=== PATIENT | female | born 1930 | race African-American/Black ===

== ENCOUNTER 2016-12-04 17:00 | Inpatient (IN) | payer OTHER ==
[~2016-12-04] VITALS: Ht 165.1 cm; Wt 86.2 kg
[2016-12-04 17:06] VITALS: BP 138/51
--- NOTE | 2016-12-04 17:16 | Emergency Room Report ---
History of Present Illness General Chief Complaint: General Complaint Source: Patient, EMS Present Illness HPI Patient presents with possible syncopal episode Patient was reported to be at the restroom when she had a lapse of consciousness However the patient reports that she did not use the restroom today There was no reports of vomiting or diarrhea The daughter apparently called the paramedics Patient right now denies any chest pain or short of breath Patient has some mild epigastric discomfort Allergies: Coded Allergies: No Known Allergies (Unverified , 12/04/16) Patient History Limited by: medical condition Past Medical History: see triage record Pertinent Family History: none Now: No Reviewed Nursing Documentation: PMH: Agreed, PSxH: Agreed Nursing Documentation-PMH Past Medical History: No History, Except For Review of Systems All Other Systems: limited - Other than the ones mentioned in the history of present illness all others are reviewed however they do stay limited due to the patient's mental status Physical Exam Vital Signs Date Time Temp Pulse Resp B/P Pulse Ox O2 Delivery O2 Flow Rate FiO2 12/04/16 16:52 98.1 109 16 107/71 98 Room Air Sp02 EP Interpretation: reviewed, normal General Appearance: no apparent distress Head: normocephalic, atraumatic Eyes: bilateral eye EOMI, bilateral eye PERRL ENT: normal pharynx Neck: supple, thyroid normal Respiratory: lungs clear, normal breath sounds Cardiovascular #1: regular rate, rhythm, no edema Gastrointestinal: non tender, soft, no mass Genitourinary: no CVA tenderness Musculoskeletal: other Neurologic: responsive Skin: no rash, warm/dry Lymphatic: no adenopathy Medical Decision Making Diagnostic Impression: Primary Impression: Renal insufficiency Additional Impression: Syncope ER Course Patient is a fairly complex patient with multiple differential to consideration including but not limited to cardiac cardiopulmonary and vascular emergencies Family has presented and at this time they do confirm Patient having a syncopal episode with loss of consciousness while sitting on the toilet There was no other trauma otherwise patient did not fall to the ground She was found slumped over Patient's blood work reveals kidney disease family does confirm the patient has been told Regarding chronic kidney disease potassium is otherwise appropriate No indication for acute dialysis patient admitted for further inpatient care Labs Test 12/04/16 17:28 12/04/16 17:42 White Blood Count 8.2 K/UL (4.8-10.8) Red Blood Count 4.70 M/UL (4.20-5.40) Hemoglobin 13.5 G/DL (12.0-16.0) Hematocrit 42.1 % (37.0-47.0) Mean Corpuscular Volume 90 FL (80-99) Mean Corpuscular Hemoglobin 28.7 PG (27.0-31.0) Mean Corpuscular Hemoglobin Concent 32.1 G/DL (32.0-36.0) Red Cell Distribution Width 13.5 % (11.6-14.8) Platelet Count 127 K/UL (150-450) Mean Platelet Volume 7.7 FL (6.5-10.1) Neutrophils (%) (Auto) 73.2 % (45.0-75.0) Lymphocytes (%) (Auto) 17.6 % (20.0-45.0) Monocytes (%) (Auto) 8.5 % (1.0-10.0) Eosinophils (%) (Auto) 0.3 % (0.0-3.0) Basophils (%) (Auto) 0.4 % (0.0-2.0) Prothrombin Time 11.1 SEC (9.30-11.50) Prothromb Time International Ratio 1.1 (0.9-1.1) Activated Partial Thromboplast Time 19 SEC (23-33) Sodium Level 144 mEQ/L (135-145) Potassium Level 3.3 mEQ/L (3.4-4.9) Chloride Level 102 mEQ/L (98-107) Carbon Dioxide Level 16 mEQ/L (20-30) Anion Gap 26 (5-15) Blood Urea Nitrogen 91 mg/dL (7-23) Creatinine 3.6 mg/dL (0.5-0.9) Estimat Glomerular Filtration Rate mL/min (>60) Glucose Level 119 mg/dL (74-106) Calcium Level 10.8 mg/dL (8.6-10.2) Total Bilirubin 0.4 mg/dL (0.0-1.2) Aspartate Amino Transf (AST/SGOT) 10 U/L (5-40) Alanine Aminotransferase (ALT/SGPT) 8 U/L (3-33) Alkaline Phosphatase 69 U/L (35-104) Total Creatine Kinase 61 U/L (26-140) Creatine Kinase MB 7.1 ng/mL (< 3.8) Creatine Kinase MB Relative Index 11.6 Troponin I < 0.30 ng/mL (<=0.30) Pro-B-Type Natriuretic Peptide 1329 pg/mL (0-450) Total Protein 7.2 g/dL (6.6-8.7) Albumin 4.2 g/dL (3.5-5.2) Globulin 3.0 g/dL Albumin/Globulin Ratio 1.4 (1.0-2.7) Lipase 1292 U/L (< 60) Urine Color Pale yellow Urine Appearance Slightly cloudy Urine pH 5 (4.5-8.0) Urine Specific Francis 1.015 (1.005-1.035) Urine Protein 1+ (NEGATIVE) Urine Glucose (UA) Negative (NEGATIVE) Urine Ketones 1+ (NEGATIVE) Urine Occult Blood Negative (NEGATIVE) Urine Nitrite Negative (NEGATIVE) Urine Bilirubin Negative (NEGATIVE) Urine Urobilinogen Normal MG/DL (0.0-1.0) Urine Leukocyte Esterase 1+ (NEGATIVE) Urine RBC 0 /HPF (0 - 2) Urine WBC 5-10 /HPF (0 - 2) Urine Squamous Epithelial Cells Moderate /LPF (NONE/OCC) Urine Bacteria Few /HPF (NONE) EKG Diagnostic Results Rate: normal Rhythm: NSR ST Segments: other - Nonspecific ST and T-wave changes Rhythm Strip Diag. Results EP Interpretation: yes Rate: 66 Rhythm: NSR, no PVC's, no ectopy Chest X-Ray Diagnostic Results EP Interpretation: Yes Findings: no consolidation, no effusion, no pneumothorax Number of Views: 1 Last Vital Signs Date Time Temp Pulse Resp B/P Pulse Ox O2 Delivery O2 Flow Rate FiO2 12/04/16 17:06 97.0 73 13 138/51 100 Room Air Status: improved Disposition: ADMITTED INPATIENT Condition: Serious VIJAY CONRAD D.O. Dec 04, 2016 17:16
[2016-12-04 17:44] LABS: BASOPHILS % (AUTO) 0.4 % (0.0-2.0); EOSINOPHILS % (AUTO) 0.3 % (0.0-3.0); LYMPHOCYTES % (AUTO) 17.6 % (20.0-45.0); MEAN CORPUSCULAR HEMOGLOBIN 28.7 PG (27.0-31.0); MEAN CORPUSCULAR HGB CONC 32.1 G/DL (32.0-36.0); MEAN CORPUSCULAR VOLUME 90 FL (80-99); MEAN PLATELET VOLUME 7.7 FL (6.5-10.1); MONOCYTES % (AUTO) 8.5 % (1.0-10.0); NEUTROPHILS % (AUTO) 73.2 % (45.0-75.0); PLATELET COUNT 127 K/UL (150-450); RED CELL DISTRIBUTION WIDTH 13.5 % (11.6-14.8); WHITE BLOOD COUNT 8.2 K/UL (4.8-10.8)
[2016-12-04 18:11] LABS: KETONES,URINE 1+ (NEGATIVE); LEUKOCYTE ESTERASE ,URINE 1+ (NEGATIVE); NITRITE,URINE NEGATIVE (NEGATIVE); PH,URINE 5 (4.5-8.0); PROTEIN,URINE 1+ (NEGATIVE); UROBILINOGEN,URINE NORMAL MG/DL (0.0-1.0)
[2016-12-04 18:11] LABS: INR 1.1 (0.9-1.1); PROTHROMBIN TIME 11.1 SEC (9.30-11.50)
[2016-12-04 18:12] LABS: ALANINE AMINOTRANSFERASE 8 U/L (3-33); ALBUMIN/GLOBULIN RATIO 1.4 (1.0-2.7); ANION GAP 26 (5-15); ASPARTATE AMINO TRANSFERASE 10 U/L (5-40); CALCIUM 10.8 mg/dL (8.6-10.2); CARBON DIOXIDE 16 mEQ/L (20-30); CHLORIDE 102 mEQ/L (98-107); CREATININE 3.6 mg/dL (0.5-0.9); HEMOLYSIS 8; POTASSIUM 3.3 mEQ/L (3.4-4.9); SODIUM 144 mEQ/L (135-145); TOTAL PROTEIN 7.2 g/dL (6.6-8.7); TROPONIN I < 0.30 ng/mL (<=0.30)
[2016-12-04 18:13] LABS: APPEARANCE,URINE SLIGHTLY CLOUDY
[2016-12-04 18:23] LABS: CKMB 7.1 ng/mL (< 3.8)
[2016-12-04 18:23] LABS: BACTERIA,URINE FEW /HPF; RBC,URINE 0 /HPF (0 - 2); SQUAMOUS EPITHELIAL CELL,UR MODERATE /LPF (NONE/OCC)
[2016-12-04 18:36] LABS: LIPASE 1292 U/L (< 60)
[2016-12-04] MEDS ORDERED: MECLIZINE HCL25 MG ORAL (19:06)
[2016-12-04] MEDS ORDERED: IBUPROFEN600 MG ORAL (19:06)
[2016-12-04] MEDS ORDERED: VITAMIN D400 INTLU ORAL (19:06)
[2016-12-04] MEDS ORDERED: TRAMADOL HCL50 MG ORAL (19:06)
[2016-12-04] MEDS ORDERED: LASIX40 MG ORAL (19:12)
[2016-12-04] MEDS ORDERED: POTASSIUM CHLO10 ME3 ORAL (19:12)
[2016-12-04] MEDS ORDERED: SIMVASTATIN20 MG ORAL (19:12)
[2016-12-04 19:14] VITALS: BP 142/66
[2016-12-04 22:03] VITALS: BP 140/72
[2016-12-04 23:14] VITALS: BP 131/65
[2016-12-05] VITALS (12 sets, daily range): BP systolic 119–161; BP diastolic 66–99
[2016-12-05 07:41] LABS: BASOPHILS % (AUTO) 0.2 % (0.0-2.0); LYMPHOCYTES % (AUTO) 11.1 % (20.0-45.0); MEAN CORPUSCULAR HEMOGLOBIN 28.9 PG (27.0-31.0); MEAN CORPUSCULAR HGB CONC 32.2 G/DL (32.0-36.0); MEAN CORPUSCULAR VOLUME 90 FL (80-99); MEAN PLATELET VOLUME 8.8 FL (6.5-10.1); MONOCYTES % (AUTO) 5.3 % (1.0-10.0); NEUTROPHILS % (AUTO) 83.3 % (45.0-75.0); PLATELET COUNT 140 K/UL (150-450); RED BLOOD COUNT 4.78 M/UL (4.20-5.40); RED CELL DISTRIBUTION WIDTH 13.6 % (11.6-14.8); WHITE BLOOD COUNT 10.6 K/UL (4.8-10.8)
[2016-12-05 07:51] LABS: ANION GAP 27 (5-15); CALCIUM 10.8 mg/dL (8.6-10.2); CARBON DIOXIDE 16 mEQ/L (20-30); CHLORIDE 104 mEQ/L (98-107); CREATININE 3.2 mg/dL (0.5-0.9); HEMOLYSIS 5; POTASSIUM 3.7 mEQ/L (3.4-4.9); SODIUM 147 mEQ/L (135-145); TROPONIN I < 0.30 ng/mL (<=0.30)
[2016-12-05 08:07] LABS: AMYLASE 2216 U/L (10-110)
[2016-12-05 08:38] LABS: LIPASE > 3000 U/L (< 60)
[2016-12-05] MEDS: Heparin 5000 units/ml inj SUBQ SCH ×2 (12:56→21:00)
--- NOTE | 2016-12-05 13:56 | Diagnostic Imaging Report ---
Indication: SOB Technique: One view of the chest Comparison: none Findings: Lungs and pleural spaces are clear. Heart size is normal. Aorta is tortuous Impression: No acute process This agrees with the preliminary interpretation provided by the emergency room physician
--- NOTE | 2016-12-05 17:16 | General Progress Note ---
Assessment/Plan Problem List: (1) Pancreatitis ICD Codes: K85.90 - Acute pancreatitis without necrosis or infection, unspecified SNOMED: 15639225 (2) Renal insufficiency ICD Codes: N28.9 - Disorder of kidney and ureter, unspecified SNOMED: 981741343 Assessment/Plan fu abd CT fu us repeat labs tumor makers Subjective ROS Limited/Unobtainable: Yes Allergies: Coded Allergies: No Known Allergies (Unverified , 12/04/16) Subjective abd pain Objective Last 24 Hour Vital Signs Date Time Temp Pulse Resp B/P Pulse Ox O2 Delivery O2 Flow Rate FiO2 12/05/16 16:13 110 16 154/96 100 Room Air 12/05/16 14:21 108 16 144/99 100 Room Air 12/05/16 12:37 97 16 161/82 100 Room Air 12/05/16 10:25 103 16 139/87 100 Room Air 12/05/16 07:45 104 17 139/82 100 Room Air 12/05/16 05:58 100 18 151/82 100 Room Air 12/05/16 03:53 97.6 99 18 133/97 100 Room Air 12/05/16 02:55 97.9 97 18 138/82 100 Room Air 12/05/16 01:29 97.0 101 18 138/75 100 Room Air 12/05/16 00:59 97.0 99 18 138/66 100 Room Air 12/04/16 23:14 97.0 98 18 131/65 100 Room Air 12/04/16 22:03 97.0 83 16 140/72 98 Room Air 12/04/16 19:14 97.0 93 16 142/66 98 Room Air Intake and Output 12/04/16 12/05/16 19:00 07:00 Output Total 200 ml 100 ml Balance -200 ml -100 ml Output Urine Total 200 ml 100 ml # Voids 1 1 Laboratory Tests 12/04/16 17:28: White Blood Count 8.2, Red Blood Count 4.70, Hemoglobin 13.5, Hematocrit 42.1, Mean Corpuscular Volume 90, Mean Corpuscular Hemoglobin 28.7, Mean Corpuscular Hemoglobin Concent 32.1, Red Cell Distribution Width 13.5, Platelet Count 127L, Mean Platelet Volume 7.7, Neutrophils (%) (Auto) 73.2, Lymphocytes (%) (Auto) 17.6L, Monocytes (%) (Auto) 8.5, Eosinophils (%) (Auto) 0.3, Basophils (%) (Auto ) 0.4, Prothrombin Time 11.1, Prothromb Time International Ratio 1.1, Activated Partial Thromboplast Time 19L, Sodium Level 144, Potassium Level 3.3L, Chloride Level 102, Carbon Dioxide Level 16L, Anion Gap 26H, Blood Urea Nitrogen 91H, Creatinine 3.6H, Estimat Glomerular Filtration Rate , Glucose Level 119H, Calcium Level 10.8H, Total Bilirubin 0.4, Aspartate Amino Transf (AST/SGOT) 10, Alanine Aminotransferase (ALT/SGPT) 8, Alkaline Phosphatase 69, Total Creatine Kinase 61, Creatine Kinase MB 7.1H, Creatine Kinase MB Relative Index 11.6, Troponin I < 0.30, Pro-B-Type Natriuretic Peptide 1329H, Total Protein 7.2, Albumin 4.2, Globulin 3.0, Albumin/Globulin Ratio 1.4, Lipase 1292H 12/04/16 17:42: Urine Color Pale yellow, Urine Appearance Slightly cloudy, Urine pH 5, Urine Specific [place] 1.015, Urine Protein 1+H, Urine Glucose (UA) Negative, Urine Ketones 1+H, Urine Occult Blood Negative, Urine Nitrite Negative, Urine Bilirubin Negative, Urine Urobilinogen Normal, Urine Leukocyte Esterase 1+H, Urine RBC 0, Urine WBC 5-10H, Urine Squamous Epithelial Cells ModerateH, Urine Bacteria Few 12/05/16 06:55: White Blood Count 10.6, Red Blood Count 4.78, Hemoglobin 13.8, Hematocrit 42.8, Mean Corpuscular Volume 90, Mean Corpuscular Hemoglobin 28.9, Mean Corpuscular Hemoglobin Concent 32.2, Red Cell Distribution Width 13.6, Platelet Count 140L, Mean Platelet Volume 8.8, Neutrophils (%) (Auto) 83.3H, Lymphocytes (%) (Auto) 11.1L, Monocytes (%) (Auto) 5.3, Eosinophils (%) (Auto) 0.0, Basophils (%) (Auto ) 0.2, Sodium Level 147H, Potassium Level 3.7, Chloride Level 104, Carbon Dioxide Level 16L, Anion Gap 27H, Blood Urea Nitrogen 87H, Creatinine 3.2H, Estimat Glomerular Filtration Rate , Glucose Level 96, Calcium Level 10.8H, Troponin I < 0.30, Lipase > 3000H, Amylase Level 2216*H Height (Feet): 5 Height (Inches): 5.00 Weight (Pounds): 190 General Appearance: alert EENT: normal ENT inspection Neck: supple Cardiovascular: normal rate Respiratory/Chest: lungs clear Abdomen: soft, decreased bowel sounds, tender Extremities: non-tender ALESSIA FERGUSON Dec 05, 2016 17:16
[2016-12-06 04:01] VITALS: BP 128/81
[2016-12-06 08:00] VITALS: BP 138/91
[2016-12-06 08:05] LABS: MEAN CORPUSCULAR HEMOGLOBIN 29.1 PG (27.0-31.0); MEAN CORPUSCULAR HGB CONC 32.4 G/DL (32.0-36.0); MEAN CORPUSCULAR VOLUME 90 FL (80-99); MEAN PLATELET VOLUME 8.4 FL (6.5-10.1); PLATELET COUNT 124 K/UL (150-450); RED BLOOD COUNT 4.91 M/UL (4.20-5.40); RED CELL DISTRIBUTION WIDTH 13.8 % (11.6-14.8); WHITE BLOOD COUNT 17.1 K/UL (4.8-10.8)
[2016-12-06 08:35] LABS: ALANINE AMINOTRANSFERASE 9 U/L (3-33); ALBUMIN/GLOBULIN RATIO 1.2 (1.0-2.7); ANION GAP 25 (5-15); ASPARTATE AMINO TRANSFERASE 15 U/L (5-40); CALCIUM 10.8 mg/dL (8.6-10.2); CARBON DIOXIDE 17 mEQ/L (20-30); CHLORIDE 109 mEQ/L (98-107); CHOLESTEROL 196 mg/dL (< 200); CHOLESTEROL/HDL RATIO 2.6 (3.3-4.4); CREATININE 3.3 mg/dL (0.5-0.9); HEMOLYSIS 4; LDL CHOLESTEROL (CALC.) 100 mg/dL (60-99); POTASSIUM 3.4 mEQ/L (3.4-4.9); SODIUM 151 mEQ/L (135-145); TOTAL PROTEIN 7.7 g/dL (6.6-8.7)
--- NOTE | 2016-12-06 08:52 | Diagnostic Imaging Report ---
Indication: Abdominal pain Technique: Spiral acquisitions obtained through the abdomen and pelvis. Patient given oral contrast. No IV contrast utilized, per referring physician request.. Multiplanar reconstructions were generated. Total dose length product 914 mGycm. CTDIvol(s) mGy Comparison: None Findings: There is slight prominence of the pancreatic uncinate osseous and body and slight peripancreatic inflammatory change among with some inflammation tracking along posterior Gerota's fascia. No associated peripancreatic fluid collection. No evidence of gallstones or biliary ductal dilatation. Lack of IV contrast limits assessment of the solid organs. The liver, spleen, adrenals, left kidney are grossly unremarkable. Right kidney demonstrates a 1.5 cm cyst No mesenteric or retroperitoneal mass or adenopathy. No pelvic mass or adenopathy. There is a Lei catheter within the bladder. The bladder is nondistended. There is a small right groin inguinal hernia which contains only fat. There is a small umbilical hernia which contains only fat. There is colonic diverticulosis. No evidence of diverticulitis. Normal appendix. No small bowel distention. No free or loculated intraperitoneal air or fluid is evident. There is a small sliding-type hiatal hernia. There is suggestion of mild wall thickening of the distal esophagus. There is also diverticulosis. No evidence of diverticulitis likely that wall thickening of the duodenum. The included lung bases are clear. The bones demonstrate degenerative spondylosis changes. Impression: Slight swelling of the pancreas and peripancreatic stranding. Findings are consistent with acute pancreatitis. No associated fluid collection demonstrated. Thickening of the duodenal wall. Suspect reactive secondary to the above, but duodenitis is a possibility. Small sliding-type hiatal hernia. Distal esophageal wall thickening may indicate esophagitis Incidental findings as noted, including small fat-containing right inguinal hernia, small fat-containing umbilical hernia, right renal cyst, degenerative spondylosis, Lei catheter This agrees with the preliminary interpretation provided overnight by Dr. Loredo The CT scanner at [facility] is accredited by the [employer] and the scans are performed using protocols designed to limit radiation exposure to as low as reasonably achievable to attain images of sufficient resolution adequate for diagnostic evaluation.
[2016-12-06 08:59] LABS: AMYLASE 1358 U/L (10-110)
[2016-12-06] MEDS: Heparin 5000 units/ml inj SUBQ SCH ×2 (09:00→21:00)
[2016-12-06 09:27] LABS: LIPASE 1168 U/L (< 60)
[2016-12-06 10:59] LABS: BAND NEUTROPHILS % (MANUAL) 1 % (0-8); BASOPHILS % (MANUAL) 0 % (0-2); EOSINOPHILS % (MANUAL) 1 % (0-3); LYMPHOCYTES % (MANUAL) 6 % (20-45); NEUTROPHILS % (MANUAL) 87 % (45-75); PLATELET ESTIMATE DECREASED; PLATELET MORPHOLOGY NORMAL; TOTAL CELLS COUNTED 100
--- NOTE | 2016-12-06 11:06 | General Progress Note ---
Assessment/Plan Problem List: (1) Pancreatitis ICD Codes: K85.90 - Acute pancreatitis without necrosis or infection, unspecified SNOMED: 93883478 (2) Renal insufficiency ICD Codes: N28.9 - Disorder of kidney and ureter, unspecified SNOMED: 295804161 (3) Diverticulosis ICD Codes: K57.90 - Diverticulosis of intestine, part unspecified, without perforation or abscess without bleeding SNOMED: 050839184 (4) Hiatal hernia ICD Codes: K44.9 - Diaphragmatic hernia without obstruction or gangrene SNOMED: 87659848 (5) Esophagitis ICD Codes: K20.9 - Esophagitis, unspecified SNOMED: 14739371 Assessment/Plan ct reviewed labd improving ? cause for pancreatitis MRCP EGD when more stable Subjective ROS Limited/Unobtainable: Yes Allergies: Coded Allergies: No Known Allergies (Unverified , 12/04/16) Subjective abd pain Objective Last 24 Hour Vital Signs Date Time Temp Pulse Resp B/P Pulse Ox O2 Delivery O2 Flow Rate FiO2 12/06/16 08:00 97.9 111 17 138/91 93 Room Air 12/06/16 04:01 98.6 112 19 128/81 97 Room Air 12/06/16 04:00 102 12/05/16 20:07 97.6 108 16 151/92 100 Room Air 12/05/16 20:00 97.5 109 21 119/90 98 Room Air 12/05/16 18:22 114 16 146/96 100 Room Air 12/05/16 16:13 110 16 154/96 100 Room Air 12/05/16 14:21 108 16 144/99 100 Room Air 12/05/16 12:37 97 16 161/82 100 Room Air Intake and Output 12/05/16 12/06/16 19:00 07:00 Output Total 560 ml Balance -560 ml Output Urine Total 560 ml Laboratory Tests 12/06/16 07:09: White Blood Count 17.1#H, Red Blood Count 4.91, Hemoglobin 14.3, Hematocrit 44.0 , Mean Corpuscular Volume 90, Mean Corpuscular Hemoglobin 29.1, Mean Corpuscular Hemoglobin Concent 32.4, Red Cell Distribution Width 13.8, Platelet Count 124L, Mean Platelet Volume 8.4, Neutrophils (%) (Auto) , Lymphocytes (%) ( Auto) , Monocytes (%) (Auto) , Eosinophils (%) (Auto) , Basophils (%) (Auto) , Neutrophils % (Manual) [Pending], Lymphocytes % (Manual) [Pending], Platelet Estimate [Pending], Platelet Morphology [Pending], Sodium Level 151H, Potassium Level 3.4, Chloride Level 109H, Carbon Dioxide Level 17L, Anion Gap 25H, Blood Urea Nitrogen 85H, Creatinine 3.3H, Estimat Glomerular Filtration Rate , Glucose Level 87, Calcium Level 10.8H, Total Bilirubin 0.4, Aspartate Amino Transf (AST/SGOT) 15, Alanine Aminotransferase (ALT/SGPT) 9, Alkaline Phosphatase 72, Total Protein 7.7, Albumin 4.2, Globulin 3.5, Albumin/Globulin Ratio 1.2, Triglycerides Level 98, Cholesterol Level 196, LDL Cholesterol 100H, HDL Cholesterol 76H, Cholesterol/HDL Ratio 2.6L, Amylase Level 1358*H, Lipase 1168H, CA 19-9 Antigen 126.7H Height (Feet): 5 Height (Inches): 5.00 Weight (Pounds): 190 General Appearance: alert EENT: normal ENT inspection Neck: supple Cardiovascular: normal rate Respiratory/Chest: decreased breath sounds Abdomen: normal bowel sounds, soft, tender Extremities: non-tender ALESSIA FERGUSON Dec 06, 2016 11:06
--- NOTE | 2016-12-06 11:09 | Cardiology Report ---
APPROVED REPORT EXAM: Two-dimensional and M-mode echocardiogram with Doppler and color Doppler. INDICATION Congestive Heart Failure M-Mode DIMENSIONS Left Atrium (MM)2.2 (1.6-4.0cm) Aortic Root3.2 (2.0-3.7cm) Aortic Cusp Exc.1.6 (1.5-2.0cm) Technically difficult study due to very poor acoustical windows. M-mode measurements of left ventricle not obtainable due to cardiac position (angle) Normal left ventricular chamber size, grossly normal systolic function and wall motion to extent visualized. Left ventricular ejection fraction estimated to be probably normal Study quality precludes accurate assessment of regional wall motion. Mild left ventricular hypertrophy. Anterior Echo-free space, may be due to pericardial fat or effusion. All other cardiac chamber sizes are within normal limits. Focal aortic valve sclerosis with adequate cusp excursion. Thickened mitral valve leaflets with normal excursion. Mitral annulus and aortic root calcification. Pulmonic valve not well visualized. Normal tricuspid valve structure. No subcostal views obtained due to G-tube location. A color flow and spectral Doppler study was performed and revealed: Trace aortic regurgitation. Trace mitral regurgitation. Mitral diastolic velocities suggest reduced left ventricular relaxation c/w mild LV diastolic dysfunction (Grade I). Trace tricuspid regurgitation. Tricuspid systolic velocities suggests peak right ventricular systolic pressure of 16 mmHg. No pulmonic regurgitation present.
--- NOTE | 2016-12-06 11:27 | Cardiology Report ---
APPROVED REPORT EKG Measurement Heart [id number] IA [id number] Sinus tachycardia with 1st degree AV block with Inferior infarct, age undetermined Cannot rule out Anterior infarct, age undetermined Abnormal ECG
--- NOTE | 2016-12-06 11:27 | Cardiology Report ---
APPROVED REPORT EKG Measurement Heart [id number] RI [id number] Sinus rhythm with marked sinus arrhythmia with premature atrial complexes Low voltage QRS Nonspecific ST and T wave abnormality Abnormal ECG
[2016-12-06 12:08] VITALS: BP 132/86
[2016-12-06] MEDS: Potassium Chloride 30 MEQ in 1/2 NS 1000ml 1,000 ML IV SCH (13:36)
--- NOTE | 2016-12-06 15:51 | Wound Care Consultation ---
Wound Assessment Wound Assessment #1: Wound Number: #1 Wound Present on Admission: Yes New Wound: No Status Change of Wound: No Wound Location Body Site: sacral Wound Type: pressure ulcer Boy Test: Does not Boy Pressure Ulcer Stage: deep tissue injury Wound Thickness: Full Thickness Wound Length: 10.0 Wound Width: 10.0 Wound Depth: UTD Percent of Wound Kosse/Red: 40 Percent of Wound Black/Brown: 20 Percent of Wound Purple/Maroon: 40 Wound Drainage Amount: None Wound Drainage Odor: None/Absent Tissue Surrounding Wound: Intact - ERYTHEMIC Wound General Appearance: Reddened - MAROON, BROWN COLOR. Wound Assessment #2: Wound Number: #2 Wound Present on Admission: Yes New Wound: No Status Change of Wound: No Wound Location Body Site Modif: left, right, lower Wound Location Body Site: leg Wound Type: other - DRY SCALY SKIN. Wound Drainage Amount: None Wound Drainage Odor: None/Absent Tissue Surrounding Wound: Intact - DRY,SCALY Wound General Appearance: Open to air, Clean/Dry Wound Comment #1 Mid sacral deep tissue injury. #2 left and right lower extremity dry,scaly skin. Recommendation. -APPLY LOW AIR LOSS OVERLAY MATTRESS SPR FOR WOUND AND SKIN MANAGEMENT. -Local wound care as ordered. -Turn and reposition. - Keep clean and dry. -Offload affected sacral site , heels and feet. - Avoid sheer and friction. - Assess and notify MD if any change of condition is noted. CHRISTY ALSTON Dec 06, 2016 15:51
[2016-12-06 16:00] VITALS: BP 142/74
--- NOTE | 2016-12-06 16:06 | Diagnostic Imaging Report ---
Indication: 86-year-old female inpatient with abdominal pain, history pancreatitis Technique: Coronal and axial single shot fast spin-echo breath-hold, axial T2 FRFSE, 2-D thick slab MRCP, AXIAL 2-D FIESTA fat saturated, axial 3-D dual echo breath-hold, water weighted axial LAVA FLEX, revealed 3-D MRCP images were obtained of the abdomen. MIP reconstructions were generated of the bile ducts Comparison: CT scan and ultrasound abdomen dated 12/05/2016 Findings: Exam is limited, as there is considerable respiratory motion artifact; patient was unable to hold her breath. The gallbladder is grossly unremarkable, no wall thickening, filling defects, or evidence of pericholecystic edema. The bile ducts are suboptimally visualized due to the motion artifact, but appear to be normal in caliber. No biliary filling defects are demonstrated. The pancreatic duct is not demonstrated. Peripancreatic edema and edema extending into the anterior and posterior leaves of Gerota's fascia on the right are noted. No focal drainable fluid collections are evident. No definite pancreatic mass demonstrated, but due to the motion artifact such cannot be excluded with any confidence. The spleen and adrenals are grossly unremarkable. The right kidney demonstrates a 2 cm cyst in the upper pole. Abnormality of the duodenal wall described on prior CT is difficult to assess on this exam Impression: Limited exam, as described Mild peripancreatic edema and some phlegmon tracking along the anterior and posterior leaves of Gerota's fascia on the right. Findings are compatible with acute pancreatitis, also previously reported. No focal drainable fluid collection demonstrated Negative for gallstones or MRI evidence of acute cholecystitis. Normal caliber bile ducts, no filling defects to suggest choledocholithiasis. Right renal cyst incidentally noted
[2016-12-06 20:00] VITALS: BP 154/85
--- NOTE | 2016-12-06 20:39 | History and Physical Report ---
DATE OF ADMISSION: 12/04/2016 CHIEF COMPLAINT: Abdominal pain. HISTORY OF PRESENT ILLNESS: This is an 86-year-old, female, who presented to this hospital's emergency department with abdominal pain and syncopal episode. PAST MEDICAL HISTORY: 1. Degenerative joint disease. 2. Hypertensive cardiovascular disease. 3. Hiatal hernia. 4. Esophagitis. 5. Diverticulitis. HOME MEDICATIONS: Lasix, ibuprofen, meclizine, potassium chloride, simvastatin, tramadol, and vitamin D. ALLERGIES: No known drug allergies. FAMILY HISTORY: Unremarkable. SOCIAL HISTORY: She lives at home. HABITS: She is nonsmoker and nondrinker. There is no history of illicit drug abuse. REVIEW OF SYSTEMS: HEENT: Hearing and and eyesight are normal. Endocrine: No history of diabetes, thyroid, or adrenal problems. Respiratory: She denies shortness of breath, cough, or hemoptysis. Cardiovascular: She denies chest pain or palpitations. Gastrointestinal: History of hiatal hernia, esophagitis, and diverticulitis. Neurological: No history of stroke, syncope, or Parkinson disease. PHYSICAL EXAMINATION: GENERAL: This is an elderly female, who is in no acute distress. VITAL SIGNS: Blood pressure 138/91; pulse is 110, sinus tachycardia; respirations 20; and temperature 97.9 degrees. HEENT: Head is normocephalic and atraumatic. Pupils are equal, round, and reactive to light and accommodation consensually. NECK: Supple. Trachea midline. There is no lymphadenopathy or thyromegaly. LUNGS: Clear to auscultation and percussion. HEART: Regular rate and rhythm without rubs, murmurs, or gallops. ABDOMEN: Soft. Bowel sounds are active. EXTREMITIES: No clubbing, cyanosis, or edema. NEUROLOGICAL: She is alert and oriented x4. Cranial nerves II through XII are intact. LABORATORY AND ANCILLARY DATA: On admission, white count was 8200, today 17,100. Admission sodium 144, today 151; admission creatinine 3.6, today 3.3; and admission BUN 91, today . Admission amylase 2216, today 1358 and admission lipase 1292, today 1168. CT abdomen and pelvis shows signs of acute pancreatitis. ASSESSMENT: 1. Acute renal failure, most likely secondary to volume depletion. 2. Volume depletion secondary to acute pancreatitis. PLAN: 1. Keep NPO. 2. IV fluid rehydration. 3. GI consult and general surgery consult. Brenna Monge M.D. DR: DIEUDONNE JOB#: [id number] CC:
[2016-12-06] MEDS: Vitamin A&D Oint 2oz Tube TOPIC SCH (21:00)
[2016-12-07 00:04] VITALS: BP 125/82
[2016-12-07 04:03] VITALS: BP 122/81
[2016-12-07] MEDS: Potassium Chloride 30 MEQ in 1/2 NS 1000ml 1,000 ML IV SCH ×2 (04:37→11:30)
[2016-12-07 07:08] LABS: MEAN CORPUSCULAR HEMOGLOBIN 29.4 PG (27.0-31.0); MEAN CORPUSCULAR HGB CONC 32.7 G/DL (32.0-36.0); MEAN CORPUSCULAR VOLUME 90 FL (80-99); MEAN PLATELET VOLUME 8.4 FL (6.5-10.1); PLATELET COUNT 131 K/UL (150-450); RED BLOOD COUNT 4.92 M/UL (4.20-5.40); RED CELL DISTRIBUTION WIDTH 14.1 % (11.6-14.8); WHITE BLOOD COUNT 20.5 K/UL (4.8-10.8)
[2016-12-07 07:51] LABS: ALANINE AMINOTRANSFERASE 8 U/L (3-33); AMYLASE 461 U/L (10-110); ANION GAP 26 (5-15); ASPARTATE AMINO TRANSFERASE 14 U/L (5-40); CALCIUM 10.3 mg/dL (8.6-10.2); CARBON DIOXIDE 16 mEQ/L (20-30); CHLORIDE 110 mEQ/L (98-107); CREATININE 3.1 mg/dL (0.5-0.9); HEMOLYSIS 8; LIPASE 246 U/L (< 60); POTASSIUM 3.5 mEQ/L (3.4-4.9); SODIUM 152 mEQ/L (135-145); TOTAL PROTEIN 7.6 g/dL (6.6-8.7)
[2016-12-07 08:00] VITALS: BP 130/99
[2016-12-07] MEDS: Heparin 5000 units/ml inj SUBQ SCH ×2 (08:52→21:01)
[2016-12-07] MEDS: Vitamin A&D Oint 2oz Tube TOPIC SCH ×2 (08:53→21:00)
--- NOTE | 2016-12-07 09:46 | General Progress Note ---
Assessment/Plan Problem List: (1) Pancreatitis ICD Codes: K85.90 - Acute pancreatitis without necrosis or infection, unspecified SNOMED: 03674974 (2) Renal insufficiency ICD Codes: N28.9 - Disorder of kidney and ureter, unspecified SNOMED: 803214769 (3) Diverticulosis ICD Codes: K57.90 - Diverticulosis of intestine, part unspecified, without perforation or abscess without bleeding SNOMED: 981071231 (4) Hiatal hernia ICD Codes: K44.9 - Diaphragmatic hernia without obstruction or gangrene SNOMED: 02666902 (5) Esophagitis ICD Codes: K20.9 - Esophagitis, unspecified SNOMED: 08579664 Assessment/Plan ct reviewed MRCP reviewed labd improving ? cause for pancreatitis EGD when more stable dc protonix increase IVF Subjective ROS Limited/Unobtainable: Yes Allergies: Coded Allergies: No Known Allergies (Unverified , 12/04/16) Subjective abd pain Objective Last 24 Hour Vital Signs Date Time Temp Pulse Resp B/P Pulse Ox O2 Delivery O2 Flow Rate FiO2 12/07/16 08:00 112 12/07/16 08:00 97.6 118 17 130/99 95 Room Air 124 12/07/16 05:52 116 12/07/16 04:03 98.5 115 19 122/81 95 Room Air 12/07/16 03:05 116 12/07/16 00:04 98.8 113 18 125/82 97 Room Air 12/06/16 20:00 97.2 60 18 154/85 98 Room Air 12/06/16 18:40 111 12/06/16 16:00 96.6 114 20 142/74 98 Room Air 12/06/16 12:08 96.8 113 18 132/86 98 Room Air 103 12/06/16 12:00 108 Intake and Output 12/06/16 12/07/16 19:00 07:00 Intake Total 520 ml Output Total 600 ml Balance -80 ml Intake IV Total 520 ml Output Urine Total 600 ml # Voids 1 Laboratory Tests 12/07/16 06:45: White Blood Count 20.5H, Red Blood Count 4.92, Hemoglobin 14.5, Hematocrit 44.3 , Mean Corpuscular Volume 90, Mean Corpuscular Hemoglobin 29.4, Mean Corpuscular Hemoglobin Concent 32.7, Red Cell Distribution Width 14.1, Platelet Count 131L, Mean Platelet Volume 8.4, Neutrophils (%) (Auto) , Lymphocytes (%) ( Auto) , Monocytes (%) (Auto) , Eosinophils (%) (Auto) , Basophils (%) (Auto) , Neutrophils % (Manual) [Pending], Lymphocytes % (Manual) [Pending], Platelet Estimate [Pending], Platelet Morphology [Pending], Sodium Level 152H, Potassium Level 3.5, Chloride Level 110H, Carbon Dioxide Level 16L, Anion Gap 26H, Blood Urea Nitrogen 85H, Creatinine 3.1H, Estimat Glomerular Filtration Rate , Glucose Level 95, Lactic Acid Level 1.90, Calcium Level 10.3H, Phosphorus Level 3.8, Total Bilirubin 0.4, Aspartate Amino Transf (AST/SGOT) 14, Alanine Aminotransferase (ALT/SGPT) 8, Alkaline Phosphatase 70, Total Protein 7.6, Albumin 3.8, Globulin 3.8, Albumin/Globulin Ratio 1.0, Amylase Level 461H, Lipase 246H Procedure: MRI Abdomen no Contrast Indication: 86-year-old female inpatient with abdominal pain, history pancreatitis Technique: Coronal and axial single shot fast spin-echo breath-hold, axial T2 FRFSE, 2-D thick slab MRCP, AXIAL 2-D FIESTA fat saturated, axial 3-D dual echo breath-hold, water weighted axial LAVA FLEX, revealed 3-D MRCP images were obtained of the abdomen. MIP reconstructions were generated of the bile ducts Comparison: CT scan and ultrasound abdomen dated 12/05/2016 Findings: Exam is limited, as there is considerable respiratory motion artifact; patient was unable to hold her breath. The gallbladder is grossly unremarkable, no wall thickening, filling defects, or evidence of pericholecystic edema. The bile ducts are suboptimally visualized due to the motion artifact, but appear to be normal in caliber. No biliary filling defects are demonstrated. The pancreatic duct is not demonstrated. Peripancreatic edema and edema extending into the anterior and posterior leaves of Gerota's fascia on the right are noted. No focal drainable fluid collections are evident. No definite pancreatic mass demonstrated, but due to the motion artifact such cannot be excluded with any confidence. The spleen and adrenals are grossly unremarkable. The right kidney demonstrates a 2 cm cyst in the upper pole. Abnormality of the duodenal wall described on prior CT is difficult to assess on this exam Impression: Limited exam, as described Mild peripancreatic edema and some phlegmon tracking along the anterior and posterior leaves of Gerota's fascia on the right. Findings are compatible with acute pancreatitis, also previously reported. No focal drainable fluid collection demonstrated Negative for gallstones or MRI evidence of acute cholecystitis. Normal caliber bile ducts, no filling defects to suggest choledocholithiasis. Right renal cyst incidentally noted Dictated By: KRISTINE JACKSON M.D. Electronically Signed By: KRISTINE JACKSON M.D. Signed Date/Time 12/06/16 1606 CC: UNKNOWN; ALESSIA FERGUSON Height (Feet): 5 Height (Inches): 5.00 Weight (Pounds): 190 General Appearance: no apparent distress EENT: normal ENT inspection Neck: supple Cardiovascular: normal rate Respiratory/Chest: decreased breath sounds Abdomen: normal bowel sounds, non tender, soft Extremities: non-tender ALESSIA FERGUSON Dec 07, 2016 09:46
[2016-12-07 10:57] LABS: BAND NEUTROPHILS % (MANUAL) 1 % (0-8); BASOPHILS % (MANUAL) 0 % (0-2); EOSINOPHILS % (MANUAL) 0 % (0-3); LYMPHOCYTES % (MANUAL) 6 % (20-45); NEUTROPHILS % (MANUAL) 90 % (45-75); PLATELET ESTIMATE DECREASED; PLATELET MORPHOLOGY NORMAL; TOTAL CELLS COUNTED 100
[2016-12-07] MEDS ORDERED: Potassium Chloride 30 MEQ in 1/2 NS 1000ml 1,000 ML IV SCH (11:30)
[2016-12-07 12:00] VITALS: BP 139/92
--- NOTE | 2016-12-07 13:12 | Nephrology Progress Note ---
Assessment/Plan Plan Resolving Acute Pancreatitis. Tacycardia m/p 2/2 volume depletion. Renal failure m/p chronic. Check labs tomorrow. Check Renal US results. Subjective Subjective No new c/o Objective Objective Last 24 Hour Vital Signs Date Time Temp Pulse Resp B/P Pulse Ox O2 Delivery O2 Flow Rate FiO2 12/07/16 08:00 112 12/07/16 08:00 97.6 118 17 130/99 95 Room Air 124 12/07/16 05:52 116 12/07/16 04:03 98.5 115 19 122/81 95 Room Air 12/07/16 03:05 116 12/07/16 00:04 98.8 113 18 125/82 97 Room Air 12/06/16 20:00 97.2 60 18 154/85 98 Room Air 12/06/16 18:40 111 12/06/16 16:00 96.6 114 20 142/74 98 Room Air Intake and Output 12/06/16 12/07/16 19:00 07:00 Intake Total 585 ml Output Total 600 ml Balance -15 ml Intake IV Total 585 ml Output Urine Total 600 ml # Voids 1 Laboratory Tests 12/07/16 06:45: White Blood Count 20.5H, Red Blood Count 4.92, Hemoglobin 14.5, Hematocrit 44.3 , Mean Corpuscular Volume 90, Mean Corpuscular Hemoglobin 29.4, Mean Corpuscular Hemoglobin Concent 32.7, Red Cell Distribution Width 14.1, Platelet Count 131L, Mean Platelet Volume 8.4, Neutrophils (%) (Auto) , Lymphocytes (%) ( Auto) , Monocytes (%) (Auto) , Eosinophils (%) (Auto) , Basophils (%) (Auto) , Differential Total Cells Counted 100, Neutrophils % (Manual) 90H, Lymphocytes % (Manual) 6L, Monocytes % (Manual) 3, Eosinophils % (Manual) 0, Basophils % ( Manual) 0, Band Neutrophils 1, Platelet Estimate DecreasedL, Platelet Morphology Normal, Red Blood Cell Morphology Normal, Sodium Level 152H, Potassium Level 3.5, Chloride Level 110H, Carbon Dioxide Level 16L, Anion Gap 26H, Blood Urea Nitrogen 85H, Creatinine 3.1H, Estimat Glomerular Filtration Rate , Glucose Level 95, Lactic Acid Level 1.90, Calcium Level 10.3H, Phosphorus Level 3.8, Total Bilirubin 0.4, Aspartate Amino Transf (AST/SGOT) 14 , Alanine Aminotransferase (ALT/SGPT) 8, Alkaline Phosphatase 70, Total Protein 7.6, Albumin 3.8, Globulin 3.8, Albumin/Globulin Ratio 1.0, Amylase Level 461H, Lipase 246H Height (Feet): 5 Height (Inches): 5.00 Weight (Pounds): 190 Objective Cv Tach Lungs CTA Abd SNT . BS + E No CCE BEATRIZ DANIELS Dec 07, 2016 13:12
[2016-12-07 16:00] VITALS: BP 137/90
[2016-12-07 20:00] VITALS: BP 134/66
[2016-12-08 00:42] VITALS: BP 156/80
[2016-12-08 04:09] VITALS: BP 125/77
[2016-12-08 07:10] LABS: ALANINE AMINOTRANSFERASE 8 U/L (3-33); AMYLASE 229 U/L (10-110); ANION GAP 24 (5-15); ASPARTATE AMINO TRANSFERASE 13 U/L (5-40); CALCIUM 9.5 mg/dL (8.6-10.2); CARBON DIOXIDE 13 mEQ/L (20-30); CHLORIDE 109 mEQ/L (98-107); CREATININE 2.8 mg/dL (0.5-0.9); HEMOLYSIS 6; LIPASE 201 U/L (< 60); POTASSIUM 3.8 mEQ/L (3.4-4.9); SODIUM 146 mEQ/L (135-145); TOTAL PROTEIN 6.8 g/dL (6.6-8.7)
[2016-12-08 07:21] LABS: MEAN CORPUSCULAR HEMOGLOBIN 28.7 PG (27.0-31.0); MEAN CORPUSCULAR HGB CONC 32.5 G/DL (32.0-36.0); MEAN CORPUSCULAR VOLUME 88 FL (80-99); MEAN PLATELET VOLUME 9.4 FL (6.5-10.1); PLATELET COUNT 129 K/UL (150-450); RED BLOOD COUNT 4.64 M/UL (4.20-5.40); WHITE BLOOD COUNT 14.4 K/UL (4.8-10.8)
[2016-12-08 07:22] LABS: THYROID STIMULATING HORMONE 0.875 uIU/mL (0.300-4.500)
--- NOTE | 2016-12-08 07:33 | Nephrology Progress Note ---
Assessment/Plan Plan Resolving Acute Pancreatitis. Imaging studies - no stones. Tacycardia m/p 2/2 volume depletion. Renal failure m/p chronic. Check labs. Check Renal US results.Still pending??? MRI and non contrast CT show normal size kidneys. m/p CKD 4 Subjective Subjective No new c/o. On Clear Liquid Diet but tried only Ice Chips. No vomiting. Objective Objective Last 24 Hour Vital Signs Date Time Temp Pulse Resp B/P Pulse Ox O2 Delivery O2 Flow Rate FiO2 12/08/16 04:09 98.2 105 19 125/77 94 Room Air 12/08/16 04:00 104 12/08/16 00:42 98.7 120 20 156/80 100 Room Air 12/08/16 00:00 115 12/07/16 20:00 118 12/07/16 20:00 97.7 134 20 134/66 93 Room Air 12/07/16 16:00 95.9 121 20 137/90 99 Room Air 12/07/16 16:00 110 12/07/16 12:00 118 12/07/16 12:00 97.8 126 17 139/92 95 Room Air 123 12/07/16 08:00 112 12/07/16 08:00 97.6 118 17 130/99 95 Room Air 124 Intake and Output 12/07/16 12/08/16 19:00 07:00 Intake Total 730 ml 900 ml Output Total 250 ml 800 ml Balance 480 ml 100 ml Intake IV Total 730 ml 900 ml Output Urine Total 250 ml 800 ml # Bowel Movements 1 Laboratory Tests 12/08/16 06:00: White Blood Count 14.4H, Red Blood Count 4.64, Hemoglobin 13.3, Hematocrit 41.0 , Mean Corpuscular Volume 88, Mean Corpuscular Hemoglobin 28.7, Mean Corpuscular Hemoglobin Concent 32.5, Red Cell Distribution Width 14.0, Platelet Count 129L, Mean Platelet Volume 9.4, Neutrophils (%) (Auto) , Lymphocytes (%) ( Auto) , Monocytes (%) (Auto) , Eosinophils (%) (Auto) , Basophils (%) (Auto) , Neutrophils % (Manual) [Pending], Lymphocytes % (Manual) [Pending], Platelet Estimate [Pending], Platelet Morphology [Pending], Sodium Level 146H, Potassium Level 3.8, Chloride Level 109H, Carbon Dioxide Level 13L, Anion Gap 24H, Blood Urea Nitrogen 82H, Creatinine 2.8H, Estimat Glomerular Filtration Rate , Glucose Level 164H, Calcium Level 9.5, Total Bilirubin [Pending], Direct Bilirubin [Pending], Aspartate Amino Transf (AST/SGOT) [Pending], Alanine Aminotransferase (ALT/SGPT) [Pending], Alkaline Phosphatase [Pending], Total Protein [Pending], Albumin [Pending], Globulin 3.4, Albumin/Globulin Ratio 1.0, Amylase Level 229H, Lipase 201H, Thyroid Stimulating Hormone (TSH) 0.875 Height (Feet): 5 Height (Inches): 5.00 Weight (Pounds): 190 Objective Cv Tach Lungs CTA Abd SNT . BS + E No CCE BEATRIZ DANIELS Dec 08, 2016 07:33
[2016-12-08 07:38] LABS: BILIRUBIN,DIRECT 0.1 mg/dL (0.1-0.3); TOTAL PROTEIN 6.3 g/dL (6.6-8.7)
[2016-12-08 07:52] VITALS: BP 124/67
[2016-12-08 08:22] LABS: BAND NEUTROPHILS % (MANUAL) 0 % (0-8); BASOPHILS % (MANUAL) 0 % (0-2); EOSINOPHILS % (MANUAL) 0 % (0-3); LYMPHOCYTES % (MANUAL) 7 % (20-45); NEUTROPHILS % (MANUAL) 88 % (45-75); PLATELET ESTIMATE DECREASED; TOTAL CELLS COUNTED 100
[2016-12-08 08:23] LABS: PLATELET MORPHOLOGY NORMAL
--- NOTE | 2016-12-08 08:28 | Diagnostic Imaging Report ---
Indication: Abdominal pain, abnormal renal function tests Technique: Walton-scale and duplex images of the upper abdomen were obtained Comparison: 05/07/2017 CT Findings: . Gallbladder is unremarkable, without stones, wall thickening, nor pericholecystic fluid. . Common bile duct measures 3 mm in diameter. No intrahepatic biliary ductal dilatation. The left lobe of the liver is poorly visualized. The liver grossly demonstrates normal echogenicity, no definite focal abnormality. Portal vein and hepatic veins are patent.. Pancreas is unremarkable. Spleen is unremarkable. Left kidney measures 8.4 cm in length. Right kidney measures 7.2 cm length. Right kidney demonstrates increased echogenicity. It demonstrates a 14 mm upper pole cyst.. There is no hydronephrosis. Non-aneurysmal abdominal aorta. Impression: Negative for gallstones or dilated ducts Atrophic right kidney with a small cyst. The cyst is described on recent CT scan Note suboptimal visualization of the left hepatic lobe
[2016-12-08] MEDS: Heparin 5000 units/ml inj SUBQ SCH ×2 (09:00→21:03)
[2016-12-08] MEDS: Vitamin A&D Oint 2oz Tube TOPIC SCH ×2 (10:15→21:03)
--- NOTE | 2016-12-08 10:24 | General Progress Note ---
Assessment/Plan Problem List: (1) Pancreatitis ICD Codes: K85.90 - Acute pancreatitis without necrosis or infection, unspecified SNOMED: 02464419 (2) Renal insufficiency ICD Codes: N28.9 - Disorder of kidney and ureter, unspecified SNOMED: 845846074 (3) Diverticulosis ICD Codes: K57.90 - Diverticulosis of intestine, part unspecified, without perforation or abscess without bleeding SNOMED: 648784156 (4) Hiatal hernia ICD Codes: K44.9 - Diaphragmatic hernia without obstruction or gangrene SNOMED: 78139055 (5) Esophagitis ICD Codes: K20.9 - Esophagitis, unspecified SNOMED: 61518804 Assessment/Plan ct reviewed MRCP reviewed labs improving ? cause for pancreatitis EGD when more stable IVF Subjective ROS Limited/Unobtainable: Yes Allergies: Coded Allergies: No Known Allergies (Unverified , 12/04/16) Subjective abd pain Objective Last 24 Hour Vital Signs Date Time Temp Pulse Resp B/P Pulse Ox O2 Delivery O2 Flow Rate FiO2 12/08/16 07:52 96.1 82 18 124/67 99 Room Air 12/08/16 04:09 98.2 105 19 125/77 94 Room Air 12/08/16 04:00 104 12/08/16 00:42 98.7 120 20 156/80 100 Room Air 12/08/16 00:00 115 12/07/16 20:00 118 12/07/16 20:00 97.7 134 20 134/66 93 Room Air 12/07/16 16:00 95.9 121 20 137/90 99 Room Air 12/07/16 16:00 110 12/07/16 12:00 118 12/07/16 12:00 97.8 126 17 139/92 95 Room Air 123 Intake and Output 12/07/16 12/08/16 19:00 07:00 Intake Total 730 ml 900 ml Output Total 250 ml 800 ml Balance 480 ml 100 ml Intake IV Total 730 ml 900 ml Output Urine Total 250 ml 800 ml # Bowel Movements 1 Laboratory Tests 12/08/16 06:00: White Blood Count 14.4H, Red Blood Count 4.64, Hemoglobin 13.3, Hematocrit 41.0 , Mean Corpuscular Volume 88, Mean Corpuscular Hemoglobin 28.7, Mean Corpuscular Hemoglobin Concent 32.5, Red Cell Distribution Width 14.0, Platelet Count 129L, Mean Platelet Volume 9.4, Neutrophils (%) (Auto) , Lymphocytes (%) ( Auto) , Monocytes (%) (Auto) , Eosinophils (%) (Auto) , Basophils (%) (Auto) , Differential Total Cells Counted 100, Neutrophils % (Manual) 88H, Lymphocytes % (Manual) 7L, Monocytes % (Manual) 5, Eosinophils % (Manual) 0, Basophils % ( Manual) 0, Band Neutrophils 0, Platelet Estimate DecreasedL, Platelet Morphology Normal, Red Blood Cell Morphology Normal, Sodium Level 146H, Potassium Level 3.8, Chloride Level 109H, Carbon Dioxide Level 13L, Anion Gap 24H, Blood Urea Nitrogen 82H, Creatinine 2.8H, Estimat Glomerular Filtration Rate , Glucose Level 164H, Calcium Level 9.5, Total Bilirubin 0.4, Direct Bilirubin 0.1, Aspartate Amino Transf (AST/SGOT) 13, Alanine Aminotransferase ( ALT/SGPT) 7, Alkaline Phosphatase 65, Total Protein 6.3L, Albumin 3.5, Globulin 3.4, Albumin/Globulin Ratio 1.0, Amylase Level 229H, Lipase 201H, Thyroid Stimulating Hormone (TSH) 0.875 Height (Feet): 5 Height (Inches): 5.00 Weight (Pounds): 190 General Appearance: alert EENT: normal ENT inspection Neck: supple Cardiovascular: normal rate Respiratory/Chest: decreased breath sounds Abdomen: normal bowel sounds, non tender, soft Extremities: non-tender ALESSIA FERGUSON Dec 08, 2016 10:24
[2016-12-08] MEDS ORDERED: Morphine Sulfate 2mg/ml Inj IVP PRN (10:30)
[2016-12-08 11:15] VITALS: BP 148/72
[2016-12-08 16:00] VITALS: BP 131/64
--- NOTE | 2016-12-08 17:31 | General Progress Note ---
Assessment/Plan Assessment/Plan assuming primary care due to insurance 1. Acute pancreatitis, etiology unclear 2. tachycardia, acidosis 3. Renal failure, hypernatremia 4. Esophagitis. 5. Hypertensive cardiovascular disease. IVF w HCO3 pain mgmt EGD disc w renal, GI, RN labs Subjective Constitutional: Reports: malaise, weakness Gastrointestinal/Abdominal: Reports: nausea Allergies: Coded Allergies: No Known Allergies (Unverified , 12/04/16) Objective Last 24 Hour Vital Signs Date Time Temp Pulse Resp B/P Pulse Ox O2 Delivery O2 Flow Rate FiO2 12/08/16 16:00 96.6 90 18 131/64 99 Room Air 12/08/16 12:00 84 12/08/16 11:15 96.3 89 18 148/72 98 Room Air 12/08/16 08:00 117 12/08/16 07:52 96.1 82 18 124/67 99 Room Air 12/08/16 04:09 98.2 105 19 125/77 94 Room Air 12/08/16 04:00 104 12/08/16 00:42 98.7 120 20 156/80 100 Room Air 12/08/16 00:00 115 12/07/16 20:00 118 12/07/16 20:00 97.7 134 20 134/66 93 Room Air Intake and Output 12/07/16 12/08/16 19:00 07:00 Intake Total 730 ml 900 ml Output Total 250 ml 800 ml Balance 480 ml 100 ml Intake IV Total 730 ml 900 ml Output Urine Total 250 ml 800 ml # Bowel Movements 1 Laboratory Tests 12/08/16 06:00: White Blood Count 14.4H, Red Blood Count 4.64, Hemoglobin 13.3, Hematocrit 41.0 , Mean Corpuscular Volume 88, Mean Corpuscular Hemoglobin 28.7, Mean Corpuscular Hemoglobin Concent 32.5, Red Cell Distribution Width 14.0, Platelet Count 129L, Mean Platelet Volume 9.4, Neutrophils (%) (Auto) , Lymphocytes (%) ( Auto) , Monocytes (%) (Auto) , Eosinophils (%) (Auto) , Basophils (%) (Auto) , Differential Total Cells Counted 100, Neutrophils % (Manual) 88H, Lymphocytes % (Manual) 7L, Monocytes % (Manual) 5, Eosinophils % (Manual) 0, Basophils % ( Manual) 0, Band Neutrophils 0, Platelet Estimate DecreasedL, Platelet Morphology Normal, Red Blood Cell Morphology Normal, Sodium Level 146H, Potassium Level 3.8, Chloride Level 109H, Carbon Dioxide Level 13L, Anion Gap 24H, Blood Urea Nitrogen 82H, Creatinine 2.8H, Estimat Glomerular Filtration Rate , Glucose Level 164H, Calcium Level 9.5, Total Bilirubin 0.4, Direct Bilirubin 0.1, Aspartate Amino Transf (AST/SGOT) 13, Alanine Aminotransferase ( ALT/SGPT) 7, Alkaline Phosphatase 65, Total Protein 6.3L, Albumin 3.5, Globulin 3.4, Albumin/Globulin Ratio 1.0, Amylase Level 229H, Lipase 201H, Thyroid Stimulating Hormone (TSH) 0.875 Height (Feet): 5 Height (Inches): 5.00 Weight (Pounds): 190 Neck: normal alignment Cardiovascular: regular rhythm, tachycardia Respiratory/Chest: lungs clear Edema: no edema noted Generalized SUZANNE MAYER Dec 08, 2016 17:31
[2016-12-08 20:00] VITALS: BP 125/76
[2016-12-08] MEDS: Sodium Bicarbonate 50 ML in D5W 1000ml 1,000 ML IV SCH (20:04)
[2016-12-09 00:22] VITALS: BP 109/71
[2016-12-09] MEDS: Sodium Bicarbonate 50 ML in D5W 1000ml 1,000 ML IV SCH ×3 (03:24→20:37)
[2016-12-09 04:05] VITALS: BP 130/96
[2016-12-09 07:57] LABS: BASOPHILS % (AUTO) 0.1 % (0.0-2.0); LYMPHOCYTES % (AUTO) 10.1 % (20.0-45.0); MEAN CORPUSCULAR HEMOGLOBIN 28.7 PG (27.0-31.0); MEAN CORPUSCULAR HGB CONC 32.3 G/DL (32.0-36.0); MEAN CORPUSCULAR VOLUME 89 FL (80-99); NEUTROPHILS % (AUTO) 83.8 % (45.0-75.0); PLATELET COUNT 134 K/UL (150-450); RED BLOOD COUNT 4.58 M/UL (4.20-5.40); RED CELL DISTRIBUTION WIDTH 14.2 % (11.6-14.8); WHITE BLOOD COUNT 11.4 K/UL (4.8-10.8)
[2016-12-09 08:00] VITALS: BP 125/67
[2016-12-09 08:15] LABS: ALANINE AMINOTRANSFERASE 7 U/L (3-33); AMYLASE 182 U/L (10-110); ANION GAP 19 (5-15); ASPARTATE AMINO TRANSFERASE 11 U/L (5-40); BILIRUBIN,DIRECT 0.1 mg/dL (0.1-0.3); CALCIUM 9.4 mg/dL (8.6-10.2); CARBON DIOXIDE 19 mEQ/L (20-30); CHLORIDE 106 mEQ/L (98-107); CREATININE 2.5 mg/dL (0.5-0.9); HEMOLYSIS 2; LIPASE 176 U/L (< 60); POTASSIUM 4.2 mEQ/L (3.4-4.9); SODIUM 144 mEQ/L (135-145); TOTAL PROTEIN 6.5 g/dL (6.6-8.7)
[2016-12-09] MEDS: Vitamin A&D Oint 2oz Tube TOPIC SCH ×2 (08:33→20:38)
[2016-12-09] MEDS: Heparin 5000 units/ml inj SUBQ SCH ×2 (08:33→20:38)
[2016-12-09] MEDS ORDERED: D5NS 1000ml IV ONE (10:19)
--- NOTE | 2016-12-09 11:07 | Nephrology Progress Note ---
Assessment/Plan Plan Resolving Acute Pancreatitis. Imaging studies - no stones. Tacycardia m/p 2/2 volume depletion. CKD 4. MDRD GFR is 23 ml/min/1.73 m square. Etiology of her CKD unclear. Renal Anatomy is normal. Subjective Subjective No new c/o. Objective Objective Last 24 Hour Vital Signs Date Time Temp Pulse Resp B/P Pulse Ox O2 Delivery O2 Flow Rate FiO2 12/09/16 08:00 96.3 86 18 125/67 100 Room Air 12/09/16 04:05 98.3 98 18 130/96 98 Room Air 12/09/16 04:00 120 12/09/16 00:22 98.1 120 19 109/71 93 Room Air 12/09/16 00:00 82 12/08/16 20:00 87 12/08/16 20:00 95.5 74 18 125/76 95 Room Air 12/08/16 16:00 80 12/08/16 16:00 96.6 90 18 131/64 99 Room Air 12/08/16 12:00 84 12/08/16 11:15 96.3 89 18 148/72 98 Room Air Intake and Output 12/08/16 12/09/16 19:00 07:00 Intake Total 375 ml 1125 ml Output Total 100 ml 500 ml Balance 275 ml 625 ml Intake IV Total 375 ml 1125 ml Output Urine Total 100 ml 500 ml Laboratory Tests 12/09/16 07:20: White Blood Count 11.4H, Red Blood Count 4.58, Hemoglobin 13.2, Hematocrit 40.8 , Mean Corpuscular Volume 89, Mean Corpuscular Hemoglobin 28.7, Mean Corpuscular Hemoglobin Concent 32.3, Red Cell Distribution Width 14.2, Platelet Count 134L, Mean Platelet Volume 9.0, Neutrophils (%) (Auto) 83.8H, Lymphocytes (%) (Auto) 10.1L, Monocytes (%) (Auto) 6.0, Eosinophils (%) (Auto) 0.0, Basophils (%) (Auto) 0.1, Sodium Level 144, Potassium Level 4.2, Chloride Level 106, Carbon Dioxide Level 19L, Anion Gap 19H, Blood Urea Nitrogen 74H, Creatinine 2.5H, Estimat Glomerular Filtration Rate , Glucose Level 159H, Calcium Level 9.4, Total Bilirubin 0.4, Direct Bilirubin 0.1, Aspartate Amino Transf (AST/SGOT) 11, Alanine Aminotransferase (ALT/SGPT) 7, Alkaline Phosphatase 64, Total Protein 6.5L, Albumin 3.3L, Globulin 3.2, Albumin/ Globulin Ratio 1.0, Amylase Level 182H, Lipase 176H Height (Feet): 5 Height (Inches): 5.00 Weight (Pounds): 190 Objective Cv Tach Lungs CTA Abd SNT . BS + E No JOSEFINAE BEATRIZ DANIELS Dec 09, 2016 11:07
[2016-12-09 11:23] VITALS: BP 115/81
--- NOTE | 2016-12-09 12:00 | General Progress Note ---
Assessment/Plan Problem List: (1) Pancreatitis ICD Codes: K85.90 - Acute pancreatitis without necrosis or infection, unspecified SNOMED: 39757142 (2) Renal insufficiency ICD Codes: N28.9 - Disorder of kidney and ureter, unspecified SNOMED: 091564458 (3) Diverticulosis ICD Codes: K57.90 - Diverticulosis of intestine, part unspecified, without perforation or abscess without bleeding SNOMED: 333077736 (4) Hiatal hernia ICD Codes: K44.9 - Diaphragmatic hernia without obstruction or gangrene SNOMED: 24368928 (5) Esophagitis ICD Codes: K20.9 - Esophagitis, unspecified SNOMED: 93075560 Assessment/Plan ct reviewed MRCP reviewed labs improving ? cause for pancreatitis cancel EGD plans for now consider advancing diet tomorrow IVF Subjective ROS Limited/Unobtainable: Yes Allergies: Coded Allergies: No Known Allergies (Unverified , 12/04/16) Subjective abd pain Objective Last 24 Hour Vital Signs Date Time Temp Pulse Resp B/P Pulse Ox O2 Delivery O2 Flow Rate FiO2 12/09/16 11:23 96.4 118 18 115/81 99 Room Air 12/09/16 08:00 96.3 86 18 125/67 100 Room Air 12/09/16 04:05 98.3 98 18 130/96 98 Room Air 12/09/16 04:00 120 12/09/16 00:22 98.1 120 19 109/71 93 Room Air 12/09/16 00:00 82 12/08/16 20:00 87 12/08/16 20:00 95.5 74 18 125/76 95 Room Air 12/08/16 16:00 80 12/08/16 16:00 96.6 90 18 131/64 99 Room Air 12/08/16 12:00 84 Intake and Output 12/08/16 12/09/16 19:00 07:00 Intake Total 375 ml 1125 ml Output Total 100 ml 500 ml Balance 275 ml 625 ml Intake IV Total 375 ml 1125 ml Output Urine Total 100 ml 500 ml Laboratory Tests 12/09/16 07:20: White Blood Count 11.4H, Red Blood Count 4.58, Hemoglobin 13.2, Hematocrit 40.8 , Mean Corpuscular Volume 89, Mean Corpuscular Hemoglobin 28.7, Mean Corpuscular Hemoglobin Concent 32.3, Red Cell Distribution Width 14.2, Platelet Count 134L, Mean Platelet Volume 9.0, Neutrophils (%) (Auto) 83.8H, Lymphocytes (%) (Auto) 10.1L, Monocytes (%) (Auto) 6.0, Eosinophils (%) (Auto) 0.0, Basophils (%) (Auto) 0.1, Sodium Level 144, Potassium Level 4.2, Chloride Level 106, Carbon Dioxide Level 19L, Anion Gap 19H, Blood Urea Nitrogen 74H, Creatinine 2.5H, Estimat Glomerular Filtration Rate , Glucose Level 159H, Calcium Level 9.4, Total Bilirubin 0.4, Direct Bilirubin 0.1, Aspartate Amino Transf (AST/SGOT) 11, Alanine Aminotransferase (ALT/SGPT) 7, Alkaline Phosphatase 64, Total Protein 6.5L, Albumin 3.3L, Globulin 3.2, Albumin/ Globulin Ratio 1.0, Amylase Level 182H, Lipase 176H Height (Feet): 5 Height (Inches): 5.00 Weight (Pounds): 190 General Appearance: alert EENT: PERRL/EOMI Neck: supple Cardiovascular: normal rate Respiratory/Chest: decreased breath sounds Abdomen: soft, hypoactive bowel sounds, tender Extremities: non-tender ALESSIA FERGUSON Dec 09, 2016 12:00
--- NOTE | 2016-12-09 15:54 | General Progress Note ---
Assessment/Plan Assessment/Plan 1. Acute pancreatitis, etiology unclear, improving 2. tachycardia, acidosis, improving 3. Renal failure, hypernatremia 4. Esophagitis. 5. Hypertensive cardiovascular disease. IVF w HCO3 pain mgmt EGD on hold; MRCP neg labs reviewed Subjective Gastrointestinal/Abdominal: Reports: abdominal pain - less Allergies: Coded Allergies: No Known Allergies (Unverified , 12/04/16) Objective Last 24 Hour Vital Signs Date Time Temp Pulse Resp B/P Pulse Ox O2 Delivery O2 Flow Rate FiO2 12/09/16 12:00 87 12/09/16 11:23 96.4 118 18 115/81 99 Room Air 12/09/16 08:00 86 12/09/16 08:00 96.3 86 18 125/67 100 Room Air 12/09/16 04:05 98.3 98 18 130/96 98 Room Air 12/09/16 04:00 120 12/09/16 00:22 98.1 120 19 109/71 93 Room Air 12/09/16 00:00 82 12/08/16 20:00 87 12/08/16 20:00 95.5 74 18 125/76 95 Room Air 12/08/16 16:00 80 12/08/16 16:00 96.6 90 18 131/64 99 Room Air Intake and Output 12/08/16 12/09/16 19:00 07:00 Intake Total 375 ml 1125 ml Output Total 100 ml 500 ml Balance 275 ml 625 ml Intake IV Total 375 ml 1125 ml Output Urine Total 100 ml 500 ml Laboratory Tests 12/09/16 07:20: White Blood Count 11.4H, Red Blood Count 4.58, Hemoglobin 13.2, Hematocrit 40.8 , Mean Corpuscular Volume 89, Mean Corpuscular Hemoglobin 28.7, Mean Corpuscular Hemoglobin Concent 32.3, Red Cell Distribution Width 14.2, Platelet Count 134L, Mean Platelet Volume 9.0, Neutrophils (%) (Auto) 83.8H, Lymphocytes (%) (Auto) 10.1L, Monocytes (%) (Auto) 6.0, Eosinophils (%) (Auto) 0.0, Basophils (%) (Auto) 0.1, Sodium Level 144, Potassium Level 4.2, Chloride Level 106, Carbon Dioxide Level 19L, Anion Gap 19H, Blood Urea Nitrogen 74H, Creatinine 2.5H, Estimat Glomerular Filtration Rate , Glucose Level 159H, Calcium Level 9.4, Total Bilirubin 0.4, Direct Bilirubin 0.1, Aspartate Amino Transf (AST/SGOT) 11, Alanine Aminotransferase (ALT/SGPT) 7, Alkaline Phosphatase 64, Total Protein 6.5L, Albumin 3.3L, Globulin 3.2, Albumin/ Globulin Ratio 1.0, Amylase Level 182H, Lipase 176H Height (Feet): 5 Height (Inches): 5.00 Weight (Pounds): 190 General Appearance: no apparent distress Neck: supple Cardiovascular: normal rate Respiratory/Chest: lungs clear Abdomen: non tender, soft, no organomegaly SUZANNE MAYER Dec 09, 2016 15:54
[2016-12-09 16:00] VITALS: BP 126/69
[2016-12-09 20:00] VITALS: BP 125/87
[2016-12-10] VITALS: BP 127/67
[2016-12-10 04:00] VITALS: BP 115/70
[2016-12-10] MEDS: Sodium Bicarbonate 50 ML in D5W 1000ml 1,000 ML IV SCH ×3 (04:25→20:47)
[2016-12-10 07:01] LABS: ALANINE AMINOTRANSFERASE 8 U/L (3-33); AMYLASE 176 U/L (10-110); ANION GAP 19 (5-15); ASPARTATE AMINO TRANSFERASE 13 U/L (5-40); BILIRUBIN,DIRECT 0.1 mg/dL (0.1-0.3); CALCIUM 8.7 mg/dL (8.6-10.2); CARBON DIOXIDE 21 mEQ/L (20-30); CHLORIDE 103 mEQ/L (98-107); CREATININE 2.3 mg/dL (0.5-0.9); HEMOLYSIS 3; LIPASE 182 U/L (< 60); POTASSIUM 3.6 mEQ/L (3.4-4.9); SODIUM 143 mEQ/L (135-145)
[2016-12-10 07:08] LABS: BASOPHILS % (AUTO) 0.2 % (0.0-2.0); EOSINOPHILS % (AUTO) 0.2 % (0.0-3.0); LYMPHOCYTES % (AUTO) 13.1 % (20.0-45.0); MEAN CORPUSCULAR HEMOGLOBIN 29.1 PG (27.0-31.0); MEAN CORPUSCULAR HGB CONC 32.6 G/DL (32.0-36.0); MEAN CORPUSCULAR VOLUME 89 FL (80-99); MEAN PLATELET VOLUME 8.5 FL (6.5-10.1); MONOCYTES % (AUTO) 7.3 % (1.0-10.0); NEUTROPHILS % (AUTO) 79.2 % (45.0-75.0); PLATELET COUNT 137 K/UL (150-450); RED BLOOD COUNT 4.31 M/UL (4.20-5.40); RED CELL DISTRIBUTION WIDTH 14.4 % (11.6-14.8); WHITE BLOOD COUNT 8.7 K/UL (4.8-10.8)
[2016-12-10 08:00] VITALS: BP 117/63
[2016-12-10] MEDS: Heparin 5000 units/ml inj SUBQ SCH ×2 (09:06→20:48)
[2016-12-10] MEDS: Vitamin A&D Oint 2oz Tube TOPIC SCH ×2 (09:07→20:48)
--- NOTE | 2016-12-10 11:44 | General Progress Note ---
Assessment/Plan Assessment/Plan Assessment (1) Pancreatitis ICD Codes: K85.90 - Acute pancreatitis without necrosis or infection, unspecified SNOMED: 02148208 (2) Renal insufficiency ICD Codes: N28.9 - Disorder of kidney and ureter, unspecified SNOMED: 357431859 (3) Diverticulosis ICD Codes: K57.90 - Diverticulosis of intestine, part unspecified, without perforation or abscess without bleeding SNOMED: 713161583 (4) Hiatal hernia ICD Codes: K44.9 - Diaphragmatic hernia without obstruction or gangrene SNOMED: 32688769 (5) Esophagitis ICD Codes: K20.9 - Esophagitis, unspecified SNOMED: 91713783 Assessment/Plan ct reviewed MRCP reviewed labs improving, but not normal yet ? cause for pancreatitis cancel EGD plans for now keep diet at clear liq until better IVF Subjective Allergies: Coded Allergies: No Known Allergies (Unverified , 12/04/16) Subjective above noted discussed with RN pt with some N/V on clears Objective Last 24 Hour Vital Signs Date Time Temp Pulse Resp B/P Pulse Ox O2 Delivery O2 Flow Rate FiO2 12/10/16 08:00 88 12/10/16 08:00 97.7 76 20 117/63 99 Room Air 12/10/16 04:00 82 12/10/16 04:00 97.5 79 16 115/70 96 Room Air 12/10/16 00:00 70 12/10/16 00:00 97.0 84 16 127/67 100 Room Air 12/09/16 20:00 84 12/09/16 20:00 98.1 60 18 125/87 98 Room Air 12/09/16 16:00 95.4 77 18 126/69 90 Room Air 12/09/16 16:00 93 12/09/16 12:00 87 Intake and Output 12/09/16 12/10/16 19:00 07:00 Intake Total 750 ml 1298 ml Output Total 150 ml 200 ml Balance 600 ml 1098 ml Intake IV Total 750 ml 1298 ml Output Urine Total 150 ml 200 ml # Bowel Movements 1 Laboratory Tests 12/10/16 05:45: White Blood Count 8.7, Red Blood Count 4.31, Hemoglobin 12.5, Hematocrit 38.5, Mean Corpuscular Volume 89, Mean Corpuscular Hemoglobin 29.1, Mean Corpuscular Hemoglobin Concent 32.6, Red Cell Distribution Width 14.4, Platelet Count 137L, Mean Platelet Volume 8.5, Neutrophils (%) (Auto) 79.2H, Lymphocytes (%) (Auto) 13.1L, Monocytes (%) (Auto) 7.3, Eosinophils (%) (Auto) 0.2, Basophils (%) (Auto ) 0.2, Sodium Level 143, Potassium Level 3.6, Chloride Level 103, Carbon Dioxide Level 21, Anion Gap 19H, Blood Urea Nitrogen 65H, Creatinine 2.3H, Estimat Glomerular Filtration Rate , Glucose Level 136H, Calcium Level 8.7, Total Bilirubin 0.5, Direct Bilirubin 0.1, Aspartate Amino Transf (AST/SGOT) 13 , Alanine Aminotransferase (ALT/SGPT) 8, Alkaline Phosphatase 61, Total Protein 6.0L, Albumin 3.0L, Globulin 3.0, Albumin/Globulin Ratio 1.0, Amylase Level 176H , Lipase 182H Height (Feet): 5 Height (Inches): 5.00 Weight (Pounds): 190 Objective Elderly AA woman NCAT supple CTA RRR Soft ND mild epigastric TTP no edema VENUS BASURTO Dec 10, 2016 11:44
[2016-12-10 12:00] VITALS: BP 121/50
--- NOTE | 2016-12-10 12:57 | Nephrology Progress Note ---
Assessment/Plan Plan Resolving Acute Pancreatitis. Imaging studies - no stones. Tacycardia m/p 2/2 volume depletion. CKD 4. MDRD GFR is 23 ml/min/1.73 m square. Etiology of her CKD unclear. Renal US shows small Rt. kidney CW CKD. Subjective Subjective No new c/o. Objective Objective Last 24 Hour Vital Signs Date Time Temp Pulse Resp B/P Pulse Ox O2 Delivery O2 Flow Rate FiO2 12/10/16 12:00 97.2 69 20 121/50 98 Room Air 12/10/16 08:00 88 12/10/16 08:00 97.7 76 20 117/63 99 Room Air 12/10/16 04:00 82 12/10/16 04:00 97.5 79 16 115/70 96 Room Air 12/10/16 00:00 70 12/10/16 00:00 97.0 84 16 127/67 100 Room Air 12/09/16 20:00 84 12/09/16 20:00 98.1 60 18 125/87 98 Room Air 12/09/16 16:00 95.4 77 18 126/69 90 Room Air 12/09/16 16:00 93 Intake and Output 12/09/16 12/10/16 19:00 07:00 Intake Total 750 ml 1298 ml Output Total 150 ml 200 ml Balance 600 ml 1098 ml Intake IV Total 750 ml 1298 ml Output Urine Total 150 ml 200 ml # Bowel Movements 1 Laboratory Tests 12/10/16 05:45: White Blood Count 8.7, Red Blood Count 4.31, Hemoglobin 12.5, Hematocrit 38.5, Mean Corpuscular Volume 89, Mean Corpuscular Hemoglobin 29.1, Mean Corpuscular Hemoglobin Concent 32.6, Red Cell Distribution Width 14.4, Platelet Count 137L, Mean Platelet Volume 8.5, Neutrophils (%) (Auto) 79.2H, Lymphocytes (%) (Auto) 13.1L, Monocytes (%) (Auto) 7.3, Eosinophils (%) (Auto) 0.2, Basophils (%) (Auto ) 0.2, Sodium Level 143, Potassium Level 3.6, Chloride Level 103, Carbon Dioxide Level 21, Anion Gap 19H, Blood Urea Nitrogen 65H, Creatinine 2.3H, Estimat Glomerular Filtration Rate , Glucose Level 136H, Calcium Level 8.7, Total Bilirubin 0.5, Direct Bilirubin 0.1, Aspartate Amino Transf (AST/SGOT) 13 , Alanine Aminotransferase (ALT/SGPT) 8, Alkaline Phosphatase 61, Total Protein 6.0L, Albumin 3.0L, Globulin 3.0, Albumin/Globulin Ratio 1.0, Amylase Level 176H , Lipase 182H Height (Feet): 5 Height (Inches): 5.00 Weight (Pounds): 190 Objective Cv Tach Lungs CTA Abd SNT . BS + E No CCE BEATRIZ DANIELS Dec 10, 2016 12:56
[2016-12-10 16:00] VITALS: BP 110/80
--- NOTE | 2016-12-10 17:40 | Pulmonology Progress Note ---
Assessment/Plan Assessment/Plan Current Medications Medications (Trade) Dose Ordered Sig/Juan A Route PRN Reason Start Time Stop Time Status Last Admin Dose Admin Heparin Sodium (Porcine) (Heparin 5000 units/ml) 5,000 units EVERY 12 HOURS SUBQ 12/05/16 11:00 01/04/17 10:59 12/10/16 09:06 Morphine Sulfate 2 mg 2 mg Q3H PRN IVP PAIN 4-10 12/08/16 10:30 12/15/16 10:29 12/08/16 11:39 Ondansetron HCl (Zofran) 4 mg Q4HR PRN IVP Nausea & Vomiting 12/10/16 09:30 01/09/17 09:29 Sodium Bicarbonate/ Dextrose (Sodium Bicarbonate/D5W 1000ml) 1,050 ml @ 125 mls/hr Q8H24M IV 12/08/16 19:00 01/07/17 18:59 12/10/16 12:47 Vitamin A/Vitamin D (A & D Oint) 1 applic EVERY 12 HOURS TOPIC 12/06/16 21:00 01/05/17 20:59 12/10/16 09:07 1. Acute pancreatitis, etiology unclear, improving 2. tachycardia, acidosis, improving 3. Renal failure, hypernatremia 4. Esophagitis. 5. Hypertensive cardiovascular disease. 6. UTI IVF w HCO3 pain mgmt EGD on hold; MRCP neg staty iv abx for uti, citrobacter encourage clear liquids as ordered antiemetics fu with gI recommendations at this time labs reviewed DW family Subjective HEENT: Repors: no symptoms Respiratory: Reports: no symptoms Cardiovascular: Reports: no symptoms Gastrointestinal/Abdominal: Reports: bloating, nausea, vomiting Genitourinary: Reports: no symptoms Neurologic: Reports: no symptoms Psychiatric: Reports: no symptoms Allergies: Coded Allergies: No Known Allergies (Unverified , 12/04/16) Subjective not tolerating po complains of severe epigastic pain no cp or bleeding on o2 not getting oob renmains on ivf Objective Last 24 Hour Vital Signs Date Time Temp Pulse Resp B/P Pulse Ox O2 Delivery O2 Flow Rate FiO2 12/10/16 16:00 97.0 93 18 110/80 99 Room Air 12/10/16 12:00 97.2 69 20 121/50 98 Room Air 12/10/16 12:00 72 12/10/16 08:00 88 12/10/16 08:00 97.7 76 20 117/63 99 Room Air 12/10/16 04:00 82 12/10/16 04:00 97.5 79 16 115/70 96 Room Air 12/10/16 00:00 70 12/10/16 00:00 97.0 84 16 127/67 100 Room Air 12/09/16 20:00 84 12/09/16 20:00 98.1 60 18 125/87 98 Room Air Intake and Output 12/09/16 12/10/16 19:00 07:00 Intake Total 750 ml 1298 ml Output Total 150 ml 200 ml Balance 600 ml 1098 ml Intake IV Total 750 ml 1298 ml Output Urine Total 150 ml 200 ml # Bowel Movements 1 HEENT: atraumatic, anicteric Respiratory/Chest: lungs clear, normal breath sounds Cardiovascular: normal rate, regular rhythm Abdomen: guarding, tender Skin: no rash, no lesions Neurologic/Psychiatric: no motor/sensory deficits, alert Lymphatic: no neck adenopathy Musculoskeletal: normal muscle bulk Laboratory Tests 12/10/16 05:45: White Blood Count 8.7, Red Blood Count 4.31, Hemoglobin 12.5, Hematocrit 38.5, Mean Corpuscular Volume 89, Mean Corpuscular Hemoglobin 29.1, Mean Corpuscular Hemoglobin Concent 32.6, Red Cell Distribution Width 14.4, Platelet Count 137L, Mean Platelet Volume 8.5, Neutrophils (%) (Auto) 79.2H, Lymphocytes (%) (Auto) 13.1L, Monocytes (%) (Auto) 7.3, Eosinophils (%) (Auto) 0.2, Basophils (%) (Auto ) 0.2, Sodium Level 143, Potassium Level 3.6, Chloride Level 103, Carbon Dioxide Level 21, Anion Gap 19H, Blood Urea Nitrogen 65H, Creatinine 2.3H, Estimat Glomerular Filtration Rate , Glucose Level 136H, Calcium Level 8.7, Total Bilirubin 0.5, Direct Bilirubin 0.1, Aspartate Amino Transf (AST/SGOT) 13 , Alanine Aminotransferase (ALT/SGPT) 8, Alkaline Phosphatase 61, Total Protein 6.0L, Albumin 3.0L, Globulin 3.0, Albumin/Globulin Ratio 1.0, Amylase Level 176H , Lipase 182H Current Medications Medications (Trade) Dose Ordered Sig/Juan A Route PRN Reason Start Time Stop Time Status Last Admin Dose Admin Heparin Sodium (Porcine) (Heparin 5000 units/ml) 5,000 units EVERY 12 HOURS SUBQ 12/05/16 11:00 01/04/17 10:59 12/10/16 09:06 Morphine Sulfate 2 mg 2 mg Q3H PRN IVP PAIN 4-10 12/08/16 10:30 12/15/16 10:29 12/08/16 11:39 Ondansetron HCl (Zofran) 4 mg Q4HR PRN IVP Nausea & Vomiting 12/10/16 09:30 01/09/17 09:29 Sodium Bicarbonate/ Dextrose (Sodium Bicarbonate/D5W 1000ml) 1,050 ml @ 125 mls/hr Q8H24M IV 12/08/16 19:00 01/07/17 18:59 12/10/16 12:47 Vitamin A/Vitamin D (A & D Oint) 1 applic EVERY 12 HOURS TOPIC 12/06/16 21:00 01/05/17 20:59 12/10/16 09:07 DEBBY WILSON DO Dec 10, 2016 17:40
--- NOTE | 2016-12-10 19:04 | Cardiology Report ---
APPROVED REPORT EKG Measurement Heart [id number] HI 168P [id number] Atrial tachycardia Low voltage QRS Nonspecific ST and T wave abnormality Abnormal ECG
[2016-12-10 20:00] VITALS: BP 115/75
[2016-12-10] MEDS: cefTRIAXone 1 GM in D5W 55 ML IVPB SCH (20:47)
[2016-12-11 00:07] VITALS: BP 101/52
[2016-12-11 04:10] VITALS: BP 127/84
[2016-12-11] MEDS: Sodium Bicarbonate 50 ML in D5W 1000ml 1,000 ML IV SCH ×3 (05:47→22:01)
[2016-12-11 07:37] LABS: BASOPHILS % (AUTO) 0.2 % (0.0-2.0); EOSINOPHILS % (AUTO) 0.3 % (0.0-3.0); LYMPHOCYTES % (AUTO) 14.8 % (20.0-45.0); MEAN CORPUSCULAR HEMOGLOBIN 29.6 PG (27.0-31.0); MEAN CORPUSCULAR HGB CONC 33.5 G/DL (32.0-36.0); MEAN CORPUSCULAR VOLUME 89 FL (80-99); MEAN PLATELET VOLUME 8.9 FL (6.5-10.1); MONOCYTES % (AUTO) 6.9 % (1.0-10.0); NEUTROPHILS % (AUTO) 77.9 % (45.0-75.0); PLATELET COUNT 138 K/UL (150-450); RED BLOOD COUNT 4.08 M/UL (4.20-5.40); WHITE BLOOD COUNT 7.7 K/UL (4.8-10.8)
[2016-12-11 07:58] LABS: ALANINE AMINOTRANSFERASE 9 U/L (3-33); ALBUMIN/GLOBULIN RATIO 0.8 (1.0-2.7); ANION GAP 15 (5-15); ASPARTATE AMINO TRANSFERASE 13 U/L (5-40); CALCIUM 8.3 mg/dL (8.6-10.2); CARBON DIOXIDE 25 mEQ/L (20-30); CHLORIDE 96 mEQ/L (98-107); HEMOLYSIS 5; LIPASE 180 U/L (< 60); POTASSIUM 3.5 mEQ/L (3.4-4.9); SODIUM 136 mEQ/L (135-145); TOTAL PROTEIN 5.5 g/dL (6.6-8.7)
[2016-12-11 08:00] VITALS: BP 112/78
[2016-12-11] MEDS: Vitamin A&D Oint 2oz Tube TOPIC SCH ×2 (08:35→22:00)
[2016-12-11] MEDS: Heparin 5000 units/ml inj SUBQ SCH ×2 (08:35→21:00)
[2016-12-11 09:36] VITALS: BP 112/78
[2016-12-11 12:00] VITALS: BP 117/64
--- NOTE | 2016-12-11 12:54 | Nephrology Progress Note ---
Assessment/Plan Plan Resolving Acute Pancreatitis. Imaging studies - no stones. Tacycardia m/p 2/2 volume depletion improving. CKD 4. MDRD GFR is 23 ml/min/1.73 m square. Etiology of her CKD unclear. Renal US shows small Rt. kidney CW CKD. Subjective Subjective No new c/o. Objective Objective Last 24 Hour Vital Signs Date Time Temp Pulse Resp B/P Pulse Ox O2 Delivery O2 Flow Rate FiO2 12/11/16 12:00 76 12/11/16 12:00 97.3 76 19 117/64 99 Room Air 12/11/16 08:00 97.6 76 20 112/78 98 Room Air 12/11/16 08:00 85 12/11/16 04:10 98.3 76 18 127/84 97 Room Air 12/11/16 04:00 83 12/11/16 00:07 98.7 76 19 101/52 99 Room Air 12/11/16 00:00 70 12/10/16 20:00 97.0 88 18 115/75 99 Room Air 12/10/16 20:00 80 12/10/16 16:00 97.0 93 18 110/80 99 Room Air 12/10/16 16:00 84 Intake and Output 12/10/16 12/11/16 19:00 07:00 Intake Total 1541 ml 1360 ml Output Total 375 ml 800 ml Balance 1166 ml 560 ml Intake IV Total 1541 ml 1360 ml Output Urine Total 375 ml 800 ml # Bowel Movements 2 Laboratory Tests 12/11/16 06:50: White Blood Count 7.7, Red Blood Count 4.08L, Hemoglobin 12.1, Hematocrit 36.1L , Mean Corpuscular Volume 89, Mean Corpuscular Hemoglobin 29.6, Mean Corpuscular Hemoglobin Concent 33.5, Red Cell Distribution Width 14.0, Platelet Count 138L, Mean Platelet Volume 8.9, Neutrophils (%) (Auto) 77.9H, Lymphocytes (%) (Auto) 14.8L, Monocytes (%) (Auto) 6.9, Eosinophils (%) (Auto) 0.3, Basophils (%) (Auto) 0.2, Sodium Level 136, Potassium Level 3.5, Chloride Level 96L, Carbon Dioxide Level 25, Anion Gap 15, Blood Urea Nitrogen 48H, Creatinine 2.0H, Estimat Glomerular Filtration Rate , Glucose Level 127H, Calcium Level 8.3L, Total Bilirubin 0.3, Aspartate Amino Transf (AST/SGOT) 13, Alanine Aminotransferase (ALT/SGPT) 9, Alkaline Phosphatase 66, Total Protein 5.5L, Albumin 2.6L, Globulin 2.9, Albumin/Globulin Ratio 0.8L, Lipase 180H Height (Feet): 5 Height (Inches): 5.00 Weight (Pounds): 190 Objective Cv Tach Lungs CTA Abd SNT . BS + E No CCE BEATRIZ DANIELS Dec 11, 2016 12:54
[2016-12-11 16:00] VITALS: BP 117/67
--- NOTE | 2016-12-11 16:38 | General Progress Note ---
Assessment/Plan Assessment/Plan Assessment (1) Pancreatitis ICD Codes: K85.90 - Acute pancreatitis without necrosis or infection, unspecified SNOMED: 83928514 (2) Renal insufficiency ICD Codes: N28.9 - Disorder of kidney and ureter, unspecified SNOMED: 997683619 (3) Diverticulosis ICD Codes: K57.90 - Diverticulosis of intestine, part unspecified, without perforation or abscess without bleeding SNOMED: 999982319 (4) Hiatal hernia ICD Codes: K44.9 - Diaphragmatic hernia without obstruction or gangrene SNOMED: 61671321 (5) Esophagitis ICD Codes: K20.9 - Esophagitis, unspecified SNOMED: 70759070 Assessment/Plan ct reviewed MRCP reviewed labs improving, but not normal yet ? cause for pancreatitis cancel EGD plans for now keep diet at clear liq until tomorrow IVF Subjective Allergies: Coded Allergies: No Known Allergies (Unverified , 12/04/16) Subjective above noted discussed with RN feels better today d/w family poor appetite on clears Objective Last 24 Hour Vital Signs Date Time Temp Pulse Resp B/P Pulse Ox O2 Delivery O2 Flow Rate FiO2 12/11/16 12:00 76 12/11/16 12:00 97.3 76 19 117/64 99 Room Air 12/11/16 08:00 97.6 76 20 112/78 98 Room Air 12/11/16 08:00 85 12/11/16 04:10 98.3 76 18 127/84 97 Room Air 12/11/16 04:00 83 12/11/16 00:07 98.7 76 19 101/52 99 Room Air 12/11/16 00:00 70 12/10/16 20:00 97.0 88 18 115/75 99 Room Air 12/10/16 20:00 80 Intake and Output 12/10/16 12/11/16 19:00 07:00 Intake Total 1541 ml 1360 ml Output Total 375 ml 800 ml Balance 1166 ml 560 ml Intake IV Total 1541 ml 1360 ml Output Urine Total 375 ml 800 ml # Bowel Movements 2 Laboratory Tests 12/11/16 06:50: White Blood Count 7.7, Red Blood Count 4.08L, Hemoglobin 12.1, Hematocrit 36.1L , Mean Corpuscular Volume 89, Mean Corpuscular Hemoglobin 29.6, Mean Corpuscular Hemoglobin Concent 33.5, Red Cell Distribution Width 14.0, Platelet Count 138L, Mean Platelet Volume 8.9, Neutrophils (%) (Auto) 77.9H, Lymphocytes (%) (Auto) 14.8L, Monocytes (%) (Auto) 6.9, Eosinophils (%) (Auto) 0.3, Basophils (%) (Auto) 0.2, Sodium Level 136, Potassium Level 3.5, Chloride Level 96L, Carbon Dioxide Level 25, Anion Gap 15, Blood Urea Nitrogen 48H, Creatinine 2.0H, Estimat Glomerular Filtration Rate , Glucose Level 127H, Calcium Level 8.3L, Total Bilirubin 0.3, Aspartate Amino Transf (AST/SGOT) 13, Alanine Aminotransferase (ALT/SGPT) 9, Alkaline Phosphatase 66, Total Protein 5.5L, Albumin 2.6L, Globulin 2.9, Albumin/Globulin Ratio 0.8L, Lipase 180H Height (Feet): 5 Height (Inches): 5.00 Weight (Pounds): 190 Objective Elderly AA woman NCAT supple CTA RRR Soft ND no TTP no edema VENUS BASURTO Dec 11, 2016 16:38
[2016-12-11] MEDS: cefTRIAXone 1 GM in D5W 55 ML IVPB SCH (19:33)
--- NOTE | 2016-12-11 20:19 | Pulmonology Progress Note ---
Assessment/Plan Assessment/Plan Current Medications Medications (Trade) Dose Ordered Sig/Juan A Route PRN Reason Start Time Stop Time Status Last Admin Dose Admin Heparin Sodium (Porcine) (Heparin 5000 units/ml) 5,000 units EVERY 12 HOURS SUBQ 12/05/16 11:00 01/04/17 10:59 12/10/16 09:06 Morphine Sulfate 2 mg 2 mg Q3H PRN IVP PAIN 4-10 12/08/16 10:30 12/15/16 10:29 12/08/16 11:39 Ondansetron HCl (Zofran) 4 mg Q4HR PRN IVP Nausea & Vomiting 12/10/16 09:30 01/09/17 09:29 Sodium Bicarbonate/ Dextrose (Sodium Bicarbonate/D5W 1000ml) 1,050 ml @ 125 mls/hr Q8H24M IV 12/08/16 19:00 01/07/17 18:59 12/10/16 12:47 Vitamin A/Vitamin D (A & D Oint) 1 applic EVERY 12 HOURS TOPIC 12/06/16 21:00 01/05/17 20:59 12/10/16 09:07 1. Acute pancreatitis, etiology unclear,l;ipase unchanged 2. tachycardia, acidosis, improving 3. Renal failure, hypernatremia 4. Esophagitis. 5. Hypertensive cardiovascular disease. 6. UTI IVF w HCO3 pain mgmt EGD on hold; MRCP neg staty iv abx for uti, citrobacter encourage clear liquids as ordered antiemetics fu with gI recommendations at this time labs reviewed Subjective Constitutional: Reports: no symptoms HEENT: Repors: no symptoms Respiratory: Reports: no symptoms Gastrointestinal/Abdominal: Reports: other - pain Genitourinary: Reports: no symptoms Neurologic: Reports: no symptoms Allergies: Coded Allergies: No Known Allergies (Unverified , 12/04/16) Subjective not tolerating po pain in the epigastic is less no cp or bleeding on o2 not getting oob remains on ivf Objective Last 24 Hour Vital Signs Date Time Temp Pulse Resp B/P Pulse Ox O2 Delivery O2 Flow Rate FiO2 12/11/16 16:00 98.4 88 20 117/67 97 Room Air 12/11/16 16:00 69 12/11/16 12:00 76 12/11/16 12:00 97.3 76 19 117/64 99 Room Air 12/11/16 08:00 97.6 76 20 112/78 98 Room Air 12/11/16 08:00 85 12/11/16 04:10 98.3 76 18 127/84 97 Room Air 12/11/16 04:00 83 12/11/16 00:07 98.7 76 19 101/52 99 Room Air 12/11/16 00:00 70 Intake and Output 12/10/16 12/11/16 19:00 07:00 Intake Total 1541 ml 1360 ml Output Total 375 ml 800 ml Balance 1166 ml 560 ml Intake IV Total 1541 ml 1360 ml Output Urine Total 375 ml 800 ml # Bowel Movements 2 General Appearance: WD/WN, no acute distress HEENT: atraumatic, anicteric Respiratory/Chest: lungs clear, normal breath sounds Cardiovascular: normal peripheral pulses, regular rhythm Abdomen: no mass, tender - less Extremities: no cyanosis, no clubbing Skin: no rash Neurologic/Psychiatric: alert, oriented x 3 Lymphatic: no neck adenopathy Current Medications Medications (Trade) Dose Ordered Sig/Juan A Route PRN Reason Start Time Stop Time Status Last Admin Dose Admin Ceftriaxone Sodium/Dextrose (Rocephin/D5W) 55 ml @ 110 mls/hr Q24H IVPB 12/10/16 19:00 12/17/16 18:59 12/11/16 19:33 Heparin Sodium (Porcine) (Heparin 5000 units/ml) 5,000 units EVERY 12 HOURS SUBQ 12/05/16 11:00 01/04/17 10:59 12/10/16 09:06 Morphine Sulfate 2 mg 2 mg Q3H PRN IVP PAIN 4-10 12/08/16 10:30 12/15/16 10:29 12/08/16 11:39 Ondansetron HCl 4 mg 4 mg Q4HR PRN IVP Nausea & Vomiting 12/10/16 09:30 01/09/17 09:29 Sodium Bicarbonate/ Dextrose (Sodium Bicarbonate/D5W 1000ml) 1,050 ml @ 125 mls/hr Q8H24M IV 12/08/16 19:00 01/07/17 18:59 12/11/16 14:44 Vitamin A/Vitamin D (A & D Oint) 1 applic EVERY 12 HOURS TOPIC 12/06/16 21:00 01/05/17 20:59 12/10/16 20:48 Laboratory Tests 3/26/17 06:50: White Blood Count 7.7, Red Blood Count 4.08L, Hemoglobin 12.1, Hematocrit 36.1L , Mean Corpuscular Volume 89, Mean Corpuscular Hemoglobin 29.6, Mean Corpuscular Hemoglobin Concent 33.5, Red Cell Distribution Width 14.0, Platelet Count 138L, Mean Platelet Volume 8.9, Neutrophils (%) (Auto) 77.9H, Lymphocytes (%) (Auto) 14.8L, Monocytes (%) (Auto) 6.9, Eosinophils (%) (Auto) 0.3, Basophils (%) (Auto) 0.2, Sodium Level 136, Potassium Level 3.5, Chloride Level 96L, Carbon Dioxide Level 25, Anion Gap 15, Blood Urea Nitrogen 48H, Creatinine 2.0H, Estimat Glomerular Filtration Rate , Glucose Level 127H, Calcium Level 8.3L, Total Bilirubin 0.3, Aspartate Amino Transf (AST/SGOT) 13, Alanine Aminotransferase (ALT/SGPT) 9, Alkaline Phosphatase 66, Total Protein 5.5L, Albumin 2.6L, Globulin 2.9, Albumin/Globulin Ratio 0.8L, Lipase 180H Current Medications Medications (Trade) Dose Ordered Sig/Juan A Route PRN Reason Start Time Stop Time Status Last Admin Dose Admin Ceftriaxone Sodium/Dextrose (Rocephin/D5W) 55 ml @ 110 mls/hr Q24H IVPB 12/10/16 19:00 12/17/16 18:59 12/11/16 19:33 Heparin Sodium (Porcine) (Heparin 5000 units/ml) 5,000 units EVERY 12 HOURS SUBQ 12/05/16 11:00 01/04/17 10:59 12/10/16 09:06 Morphine Sulfate 2 mg 2 mg Q3H PRN IVP PAIN 4-10 12/08/16 10:30 12/15/16 10:29 12/08/16 11:39 Ondansetron HCl 4 mg 4 mg Q4HR PRN IVP Nausea & Vomiting 12/10/16 09:30 01/09/17 09:29 Sodium Bicarbonate/ Dextrose (Sodium Bicarbonate/D5W 1000ml) 1,050 ml @ 125 mls/hr Q8H24M IV 12/08/16 19:00 01/07/17 18:59 12/11/16 14:44 Vitamin A/Vitamin D (A & D Oint) 1 applic EVERY 12 HOURS TOPIC 12/06/16 21:00 01/05/17 20:59 12/10/16 20:48 DEBBY WILSON DO Dec 11, 2016 20:19
[2016-12-12 00:08] VITALS: BP 128/72
[2016-12-12 04:02] VITALS: BP 130/72
[2016-12-12] MEDS: Sodium Bicarbonate 50 ML in D5W 1000ml 1,000 ML IV SCH (06:44)
[2016-12-12 08:00] VITALS: BP 123/70
[2016-12-12] MEDS: Heparin 5000 units/ml inj SUBQ SCH ×2 (09:58→20:34)
[2016-12-12] MEDS: Vitamin A&D Oint 2oz Tube TOPIC SCH ×2 (09:58→20:32)
[2016-12-12 10:37] LABS: ALANINE AMINOTRANSFERASE 9 U/L (3-33); ANION GAP 15 (5-15); ASPARTATE AMINO TRANSFERASE 15 U/L (5-40); BILIRUBIN,DIRECT 0.1 mg/dL (0.1-0.3); CALCIUM 8.2 mg/dL (8.6-10.2); CARBON DIOXIDE 27 mEQ/L (20-30); CHLORIDE 92 mEQ/L (98-107); CREATININE 1.8 mg/dL (0.5-0.9); HEMOLYSIS 59; LIPASE 161 U/L (< 60); POTASSIUM 3.4 mEQ/L (3.4-4.9); SODIUM 134 mEQ/L (135-145); TOTAL PROTEIN 5.2 g/dL (6.6-8.7)
--- NOTE | 2016-12-12 11:21 | General Progress Note ---
Assessment/Plan Problem List: (1) Pancreatitis ICD Codes: K85.90 - Acute pancreatitis without necrosis or infection, unspecified SNOMED: 98175678 (2) Renal insufficiency ICD Codes: N28.9 - Disorder of kidney and ureter, unspecified SNOMED: 667365513 (3) Diverticulosis ICD Codes: K57.90 - Diverticulosis of intestine, part unspecified, without perforation or abscess without bleeding SNOMED: 949729641 (4) Hiatal hernia ICD Codes: K44.9 - Diaphragmatic hernia without obstruction or gangrene SNOMED: 10414241 (5) Esophagitis ICD Codes: K20.9 - Esophagitis, unspecified SNOMED: 27290381 Assessment/Plan advance diet repeat labs plan EGD/EUS tomorrow Subjective ROS Limited/Unobtainable: Yes Allergies: Coded Allergies: No Known Allergies (Unverified , 12/04/16) Subjective no abd pain poor appetite Objective Last 24 Hour Vital Signs Date Time Temp Pulse Resp B/P Pulse Ox O2 Delivery O2 Flow Rate FiO2 12/12/16 08:00 80 12/12/16 08:00 96.7 76 20 123/70 98 Room Air 12/12/16 04:02 98.8 67 19 130/72 98 Room Air 12/12/16 04:00 74 12/12/16 00:08 98.3 77 18 128/72 97 Room Air 12/12/16 00:00 82 12/11/16 20:00 76 12/11/16 16:00 98.4 88 20 117/67 97 Room Air 12/11/16 16:00 69 12/11/16 12:00 76 12/11/16 12:00 97.3 76 19 117/64 99 Room Air Intake and Output 12/11/16 12/12/16 19:00 07:00 Intake Total 1500 ml 1360 ml Output Total 750 ml 800 ml Balance 750 ml 560 ml Intake IV Total 1500 ml 1360 ml Output Urine Total 750 ml 800 ml # Bowel Movements 1 2 Laboratory Tests 12/12/16 09:40: Sodium Level 134L, Potassium Level 3.4, Chloride Level 92L, Carbon Dioxide Level 27, Anion Gap 15, Blood Urea Nitrogen 33H, Creatinine 1.8H, Estimat Glomerular Filtration Rate , Glucose Level 127H, Calcium Level 8.2L, Total Bilirubin 0.3, Direct Bilirubin 0.1, Aspartate Amino Transf (AST/SGOT) 15, Alanine Aminotransferase (ALT/SGPT) 9, Alkaline Phosphatase 67, Pro-B-Type Natriuretic Peptide 1987H, Total Protein 5.2L, Albumin 2.4L, Lipase 161H Height (Feet): 5 Height (Inches): 5.00 Weight (Pounds): 190 General Appearance: alert EENT: normal ENT inspection Neck: supple Cardiovascular: normal rate Respiratory/Chest: decreased breath sounds Abdomen: normal bowel sounds, non tender, soft Extremities: non-tender ALESSIA FERGUSON Dec 12, 2016 11:21
[2016-12-12 11:32] LABS: BASOPHILS % (AUTO) 0.5 % (0.0-2.0); EOSINOPHILS % (AUTO) 0.7 % (0.0-3.0); LYMPHOCYTES % (AUTO) 15.6 % (20.0-45.0); MEAN CORPUSCULAR HEMOGLOBIN 29.4 PG (27.0-31.0); MEAN CORPUSCULAR HGB CONC 33.1 G/DL (32.0-36.0); MEAN CORPUSCULAR VOLUME 89 FL (80-99); MEAN PLATELET VOLUME 9.1 FL (6.5-10.1); MONOCYTES % (AUTO) 7.9 % (1.0-10.0); NEUTROPHILS % (AUTO) 75.3 % (45.0-75.0); PLATELET COUNT 161 K/UL (150-450); RED BLOOD COUNT 4.19 M/UL (4.20-5.40); RED CELL DISTRIBUTION WIDTH 13.8 % (11.6-14.8); WHITE BLOOD COUNT 8.4 K/UL (4.8-10.8)
[2016-12-12 12:00] VITALS: BP 123/62
--- NOTE | 2016-12-12 13:03 | General Progress Note ---
Assessment/Plan Assessment/Plan 1. Acute pancreatitis, etiology unclear, improving slowly 2. tachycardia, acidosis, improving 3. Renal failure, hypernatremia, improving 4. Esophagitis. 5. Hypertensive cardiovascular disease. reduce IV pain mgmt EGD/EUS per GI labs reviewed Subjective Respiratory: Denies: shortness of breath Gastrointestinal/Abdominal: Reports: abdominal pain - less, poor appetite Allergies: Coded Allergies: No Known Allergies (Unverified , 12/04/16) Objective Last 24 Hour Vital Signs Date Time Temp Pulse Resp B/P Pulse Ox O2 Delivery O2 Flow Rate FiO2 12/12/16 08:00 80 12/12/16 08:00 96.7 76 20 123/70 98 Room Air 12/12/16 04:02 98.8 67 19 130/72 98 Room Air 12/12/16 04:00 74 12/12/16 00:08 98.3 77 18 128/72 97 Room Air 12/12/16 00:00 82 12/11/16 20:00 76 12/11/16 16:00 98.4 88 20 117/67 97 Room Air 12/11/16 16:00 69 Intake and Output 12/11/16 12/12/16 19:00 07:00 Intake Total 1500 ml 1485 ml Output Total 750 ml 800 ml Balance 750 ml 685 ml Intake IV Total 1500 ml 1485 ml Output Urine Total 750 ml 800 ml # Bowel Movements 1 2 Laboratory Tests 12/12/16 09:40: Sodium Level 134L, Potassium Level 3.4, Chloride Level 92L, Carbon Dioxide Level 27, Anion Gap 15, Blood Urea Nitrogen 33H, Creatinine 1.8H, Estimat Glomerular Filtration Rate , Glucose Level 127H, Calcium Level 8.2L, Total Bilirubin 0.3, Direct Bilirubin 0.1, Aspartate Amino Transf (AST/SGOT) 15, Alanine Aminotransferase (ALT/SGPT) 9, Alkaline Phosphatase 67, Pro-B-Type Natriuretic Peptide 1987H, Total Protein 5.2L, Albumin 2.4L, Lipase 161H 12/12/16 11:15: White Blood Count 8.4, Red Blood Count 4.19L, Hemoglobin 12.3, Hematocrit 37.2, Mean Corpuscular Volume 89, Mean Corpuscular Hemoglobin 29.4, Mean Corpuscular Hemoglobin Concent 33.1, Red Cell Distribution Width 13.8, Platelet Count 161, Mean Platelet Volume 9.1, Neutrophils (%) (Auto) 75.3H, Lymphocytes (%) (Auto) 15.6L, Monocytes (%) (Auto) 7.9, Eosinophils (%) (Auto) 0.7, Basophils (%) (Auto ) 0.5 Height (Feet): 5 Height (Inches): 5.00 Weight (Pounds): 190 Cardiovascular: normal rate Abdomen: non tender, soft, no organomegaly SUZANNE MAYER Dec 12, 2016 13:03
--- NOTE | 2016-12-12 13:27 | Wound Care Consultation ---
Wound Assessment Wound Assessment #1: Wound Number: #1 Wound Present on Admission: Yes New Wound: No Status Change of Wound: No Wound Location Body Site Modif: left, right, lower Wound Location Body Site: leg Wound Type: other - DRY SCALY SKIN. Wound Drainage Amount: None Wound Drainage Odor: None/Absent Tissue Surrounding Wound: Intact - DRY,SCALY Wound General Appearance: Open to air, Clean/Dry Wound Assessment #2: Wound Number: #2 Wound Present on Admission: Yes New Wound: No Status Change of Wound: No Wound Location Body Site Modif: mid Wound Location Body Site: sacral Wound Type: pressure ulcer Boy Test: Does not Boy Pressure Ulcer Stage: deep tissue injury Wound Thickness: Full Thickness Wound Length: 5.0 Wound Width: 5.0 Wound Depth: utd Percent of Wound Etta/Red: 80 - aviation metalsmith in color skin intact. Percent of Wound Purple/Maroon: 20 - noted aviation metalsmith maroon color skin remains intact. Wound Drainage Amount: None Wound Drainage Odor: None/Absent Tissue Surrounding Wound: Intact Wound General Appearance: Reddened Wound Comment #1 Mid sacral deep tissue injury. #2 left and right lower extremity dry,scaly skin. Recommendation. -APPLY LOW AIR LOSS OVERLAY MATTRESS SPR FOR WOUND AND SKIN MANAGEMENT. -Local wound care as ordered. -Turn and reposition. - Keep clean and dry. -Offload affected sacral site , heels and feet. - Avoid sheer and friction. - Assess and notify MD if any change of condition is noted. CHRISTY ALSTON Dec 12, 2016 13:27
[2016-12-12] MEDS ORDERED: D5 1/2NS w/KCl 20mEq 1,000 ML IV SCH (14:30)
[2016-12-12 16:00] VITALS: BP 108/73
--- NOTE | 2016-12-12 16:41 | Nephrology Progress Note ---
Assessment/Plan Plan Resolving Acute Pancreatitis. Imaging studies - no stones. Tacycardia m/p 2/2 volume depletion improving. CKD 4. MDRD GFR is 30 ml/min/1.73 m square. Etiology of her CKD unclear. Renal US shows small Rt. kidney CW CKD. Subjective Subjective No new c/o. Objective Objective Last 24 Hour Vital Signs Date Time Temp Pulse Resp B/P Pulse Ox O2 Delivery O2 Flow Rate FiO2 12/12/16 12:00 96.2 73 20 123/62 100 Room Air 12/12/16 12:00 74 12/12/16 08:00 80 12/12/16 08:00 96.7 76 20 123/70 98 Room Air 12/12/16 04:02 98.8 67 19 130/72 98 Room Air 12/12/16 04:00 74 12/12/16 00:08 98.3 77 18 128/72 97 Room Air 12/12/16 00:00 82 12/11/16 20:00 76 Intake and Output 12/11/16 12/12/16 19:00 07:00 Intake Total 1500 ml 1485 ml Output Total 750 ml 800 ml Balance 750 ml 685 ml Intake IV Total 1500 ml 1485 ml Output Urine Total 750 ml 800 ml # Bowel Movements 1 2 Laboratory Tests 12/12/16 09:40: Sodium Level 134L, Potassium Level 3.4, Chloride Level 92L, Carbon Dioxide Level 27, Anion Gap 15, Blood Urea Nitrogen 33H, Creatinine 1.8H, Estimat Glomerular Filtration Rate , Glucose Level 127H, Calcium Level 8.2L, Total Bilirubin 0.3, Direct Bilirubin 0.1, Aspartate Amino Transf (AST/SGOT) 15, Alanine Aminotransferase (ALT/SGPT) 9, Alkaline Phosphatase 67, Pro-B-Type Natriuretic Peptide 1987H, Total Protein 5.2L, Albumin 2.4L, Lipase 161H 12/12/16 11:15: White Blood Count 8.4, Red Blood Count 4.19L, Hemoglobin 12.3, Hematocrit 37.2, Mean Corpuscular Volume 89, Mean Corpuscular Hemoglobin 29.4, Mean Corpuscular Hemoglobin Concent 33.1, Red Cell Distribution Width 13.8, Platelet Count 161, Mean Platelet Volume 9.1, Neutrophils (%) (Auto) 75.3H, Lymphocytes (%) (Auto) 15.6L, Monocytes (%) (Auto) 7.9, Eosinophils (%) (Auto) 0.7, Basophils (%) (Auto ) 0.5 Height (Feet): 5 Height (Inches): 5.00 Weight (Pounds): 190 Objective Cv Tach Lungs CTA Abd SNT . BS + E No CCE BEATRIZ DANIELS Dec 12, 2016 16:41
[2016-12-12] MEDS: cefTRIAXone 1 GM in D5W 55 ML IVPB SCH (19:39)
[2016-12-12 20:00] VITALS: BP 118/53
[2016-12-13] VITALS: BP 119/75
[2016-12-13] MEDS ORDERED: Tubing IV Secondary IV ONE (00:29)
--- NOTE | 2016-12-15 14:03 | Discharge Summary ---
Discharge Summary Hospital Course Date of Admission Dec 04, 2016 at 18:04 Date of Discharge Dec 13, 2016 at 00:30 Admitting Diagnosis syncope HPI Susanne Mota is a 86 year old female who was admitted on Dec 04, 2016 at 18:04 for Syncope Hospital Course [id number] Discharge Discharge Disposition Patient was discharged to [facility] Discharge Diagnoses: Rebecca Castellanos NP Dec 15, 2016 14:03
--- NOTE | 2016-12-16 00:28 | Discharge Summary 2 SIG ---
DATE OF ADMISSION: 12/04/2016 DATE OF DISCHARGE: 12/13/2016 CONSULTANTS: 1. Tad Lundy M.D. 2. Brenna Monge M.D. BRIEF HOSPITAL COURSE: The patient is an 86-year-old female, who presented to hospital emergency department with complaints of abdominal pain and syncope. On evaluation, workup showed elevated lipase. CT of the abdomen and pelvis showed swelling of the pancreas with peripancreatic stranding consistent with acute pancreatitis. She was admitted to telemetry and was initially placed on NPO. Dr. Lundy was consulted. Abdominal ultrasound was negative for gallstones or dilated ducts with atrophic right kidney and a small cyst. She was given IV hydration and was followed by Dr. Monge for underlying chronic kidney disease with a GFR of 23. She had an MRCP done, which showed limited exam. Negative for gallstones or MRI evidence of acute cholecystitis. She was not tolerating clear liquid. Diet was slowly advanced and she was eventually transferred to [facility]. FINAL DIAGNOSES: 1. Acute pancreatitis. 2. Tachycardia with acidosis. 3. Acute on chronic renal failure with chronic kidney disease stage IV. 4. Esophagitis. 5. Hypertensive cardiovascular disease. Evgeny Carrillo M.D. I have been assigned to dictate discharge summary on this account and I was not involved in the patient's management. Rebecca Castellanos N.P. DR: RALPH JOB#: [id number] CC: SHANON
== END 2016-12-13 00:30 | disposition short-term general hospital (02) | DRG 439 ==
LOC: EDBD 17:00 → EMR 17:59 → SDSOVERFLO 18:04 → UNDOADMIN 12-05 18:04 → 2E 12-05 18:04 → EDBEDREQ 12-05 18:48 → 2E 12-06 09:47
DX: K85.90 Acute pancreatitis without necrosis or infection, unspecified (principal); N17.9 Acute kidney failure, unspecified; E87.0 Hyperosmolality and hypernatremia; N18.4 Chronic kidney disease, stage 4 (severe); K57.90 Diverticulosis of intestine, part unspecified, without perforation or abscess without bleeding; K44.9 Diaphragmatic hernia without obstruction or gangrene; K20.9 Esophagitis, unspecified; R00.0 Tachycardia, unspecified; I13.10 Hypertensive heart and chronic kidney disease without heart failure, with stage 1 through stage 4 chronic kidney disease, or unspecified chronic kidney disease; M19.90 Unspecified osteoarthritis, unspecified site; E86.9 Volume depletion, unspecified; Z66 Do not resuscitate
CPT/HCPCS: 36415; 71010; 74176; 74181; 76700; 80048; 80053; 80061; 80076; 81003; 82150; 82248; 82550; 82553; 83605; 83690; 83880; 84100; 84443; 84484; 85007; 85025; 85610; 85730; 86301; 87086; 87181; 93005; 93306